=== PATIENT | female | born 1970 | race Caucasian/White ===

== ENCOUNTER 2020-07-28 10:56 | Emergency (ER) | payer BC, SELFPAY ==
--- NOTE | 2020-07-28 11:05 | ED.HA ---
HPI - Headache General Chief Complaint: Headache Stated Complaint: Headache/Nausea Time Seen by Provider: 07/28/20 11:06 Source: patient and RN notes reviewed History of Present Illness HPI Narrative: Patient is a 49-year-old female who presents the urgent care with complaints of a headache and nausea. Patient states that she has a history of migraines that are infrequent and therefore she does not take any controller meds. Patient states that this headache started Sunday morning at approximately 2 or 3 AM and she has been taking Tylenol/ibuprofen with intermittent pain relief. Patient states that she does have sensitivity to light and sound. States that she did have to leave work yesterday due to the headache. Patient denies of any vomiting. Denies that this being the worst headache she is ever had. Patient states that most of her pain is in the front and temples. Denies of any vision changes or loss of consciousness. Denies of any recent head injury. No other acute complaints. No acute distress noted. Patient aware of the plan of care Some parts of this dictation were generated by voice recognition software and may contain typographical and/or grammatical inaccuracies. Related Data Allergies Allergy/AdvReac Type Severity Reaction Status Date / Time morphine Allergy Anaphylactic Verified 07/28/20 11:21 Shock Sulfa (Sulfonamide Allergy Vomiting Verified 07/28/20 11:21 Antibiotics) Review of Systems Review of Systems: Narrative: CONSTITUTIONAL: Denies fever, chills, or sweats. EYES: Denies visual changes, redness, or discharge. ENT: Denies rhinorrhea, congestion, sore throat, or otalgia. CARDIOVASCULAR: Denies chest pain, palpitations, or edema. RESPIRATORY: Denies cough or dyspnea. GASTROINTESTINAL: Reports of nausea without vomiting or abdominal pain GENITOURINARY: Denies dysuria or hematuria. SKIN: Denies rash or itching. MUSCULOSKELETAL: Denies back pain, joint pain, or myalgia. NEUROLOGIC: Reports of headache All other systems reviewed are negative, except as documented in HPI. PMFSH Comments At the time of my signature, I reviewed and agree with the nursing past medical, surgical, social, and family history. There is no relevant family history pertinent to the patient complaint. Exam Narrative: Exam Narrative: GENERAL: This is a well-nourished, well-developed patient, in no apparent distress. HEAD: normocephalic, atraumatic. EYES: PERRL. Sclera clear/white. Vision is grossly intact. Sensitivity to light EARS: External ears normal NOSE: External nose normal with no obvious nasal discharge, nares without redness, no rhinorrhea. THROAT: Mucous membranes moist, posterior pharynx clear. NECK: Neck supple, non-tender without lymphadenopathy CARDIOVASCULAR: Regular rate and rhythm without murmurs, gallops, or rubs. RESPIRATORY: Clear to auscultation. Breath sounds equal bilaterally. No wheezes, rales, or rhonchi. SKIN: warm, intact with no suspicious lesions or rash, good texture and turgor. NEURO: awake, alert, and oriented to person, place and time. There were no obvious focal neurologic abnormalities. No neuro deficits. EXTREMITIES: No clubbing, cyanosis, or edema. Course Vital Signs Vital signs: Vital Signs Temperature 97.8 F 07/28/20 11:10 Pulse Rate 70 07/28/20 11:10 Respiratory Rate 20 07/28/20 11:10 Blood Pressure 159/90 H 07/28/20 11:10 Pulse Oximetry 98 07/28/20 11:10 Temperature 97.8 F 07/28/20 11:10 Pulse Rate 70 07/28/20 11:10 Respiratory Rate 20 07/28/20 11:10 Blood Pressure 159/90 H 07/28/20 11:10 Pulse Oximetry 98 07/28/20 11:10 Reviewed-patient is informed that they may have pre-hypertension or hypertension based on a blood pressure reading in the department. I recommend the patient call the primary care provider listed on their discharge instructions or a physician of their choice this week to arrange follow-up for further evaluation of possible pre-h
[2020-07-28 11:10] VITALS: BP 159/90; PULSE 70; RESP 20; TEMP 36.6; O2SAT 98
== END 2020-07-28 11:36 | disposition home or self-care (01) ==
PROVIDERS: Emergency Provider Nurse Practitioner Family
DX: R51.9 Headache, unspecified (principal)
CPT/HCPCS: 99213; G0463

== ENCOUNTER 2022-02-15 09:31 | Emergency (ER) | payer BC, SELFPAY ==
[2022-02-15 09:41] VITALS: BP 150/108; PULSE 69; RESP 18; TEMP 36.2; O2SAT 97
--- NOTE | 2022-02-15 09:47 | ED.HA ---
HPI - Headache General Chief Complaint: Headache Stated Complaint: headache Time Seen by Provider: 02/15/22 09:39 History of Present Illness HPI Narrative: Patient is a 51-year-old female with a history of migraine headaches here for evaluation of her typical migraine over the past 6 hours. Patient states the pain is a throbbing sensation on the left side of her head and present behind her left eye. Came on gradually but was so severe she was unable to sleep last night. Associated with photophobia. states that it is about a 6 out of 10 currently. Denies relief from ibuprofen or Tylenol, also attempted a Fioricet without significant relief of her headache. Reports nausea but no vomiting. No fevers, chills, neck pain or stiffness, visual changes. Patient states that she has felt unwell for the past 2 days, with diarrhea, body aches, generalized weakness. Home COVID test was negative. Related Data Allergies Allergy/AdvReac Type Severity Reaction Status Date / Time morphine Allergy Anaphylactic Verified 02/15/22 09:46 Shock Sulfa (Sulfonamide Allergy Vomiting Verified 02/15/22 09:46 Antibiotics) butalbital AdvReac Insomnia Verified 02/15/22 09:46 Review of Systems Review of Systems: Gen.: Denies fevers or chills Eyes: Denies eye pain or visual change ENT: Denies congestion Respiratory: Denies shortness of breath or cough CV: Denies chest pain or palpitations GI: Reports diarrhea and nausea. Denies abdominal pain nausea, emesis or diarrhea denies burning, urgency, frequency or hematuria Musculoskeletal: Denies back pain or muscle pain Neuro: Reports headache. Denies numbness, tingling, weakness or focal weakness Skin: Denies rash Except as documented, all other systems reviewed and negative Exam Narrative: APPEARANCE: Well appearing, no pain in distress, well-nourished. Head: Normocephalic and atraumatic. EYES: PERRLA/EOMI, conjunctivae clear NOSE: No nasal drainage EARS: External ear normal in appearance THROAT: Oropharynx is clear. Mucous membranes are moist. NECK: No nuchal rigidity or meningismus. No adenopathy, no masses. RESPIRATORY: Airway patent, respirations nonlabored. Clear to auscultation bilaterally, no rales, rhonchi, wheezing. CARDIOVASCULAR: Regular rate and rhythm without murmurs, rubs, or gallops. ABDOMINAL: Normoactive bowel sounds. Soft, nontender, nondistended. No rebound tenderness or guarding. MUSCULOSKELETAL: Extremities are warm and well-perfused. Moves all extremities well. No edema. NEURO: Cranial nerves II through XII intact. Culture Manager strength equal bilaterally. Normal speech. No focal neurologic deficits. SKIN: Skin is warm and dry. No rashes. PSYCHIATRIC: Normal affect/mood. Course Vital Signs Vital signs: Vital Signs Temperature 97.2 F L 02/15/22 09:41 Pulse Rate 69 02/15/22 09:41 Respiratory Rate 18 02/15/22 09:41 Blood Pressure 150/108 H 02/15/22 09:41 Pulse Oximetry 97 02/15/22 09:41 Oxygen Delivery Room Air 02/15/22 09:41 Temperature 97.2 F L 02/15/22 09:41 Pulse Rate 70 02/15/22 11:24 Respiratory Rate 18 02/15/22 11:24 Blood Pressure 154/86 H 02/15/22 11:24 Pulse Oximetry 99 02/15/22 11:24 Oxygen Delivery Room Air 02/15/22 09:41 MDM - Headache MDM Narrative Medical decision making narrative: 51-year-old female here for evaluation of her typical migraine headache over the past several hours. She is nontoxic-appearing on exam and has no focal neurologic deficits. Slightly hypertensive, improved in the ED without intervention. Her vital signs are otherwise normal. Neurologic exam without evidence of meningismus, altered mental status, focal neurologic findings, so doubt meningitis, encephalitis or stroke. Presentation not consistent with acute intracranial bleed to include subarachnoid hemorrhage given her lack of risk factors and headache history. She has no history of trauma so doubt ICH. Given history and physical, tempor
[2022-02-15] MEDS: SODIUM CHLORIDE 0.9% IV 1,000 ML 999 ML IV CONT (09:58)
[2022-02-15] MEDS: PROCHLORPERAZINE EDISYLATE 10 MG/2 ML VIAL IV PUSH (09:58)
[2022-02-15] MEDS: diphenhydrAMINE HCl INJ 50 MG/ML VIAL 12.5 MG IV PUSH (09:58)
[2022-02-15 10:06] LABS: Basophils Percent Auto 0.5 % (0.2-1.2); Eosinophils Absolute Auto 0.1 K/mm3 (0-0.3); Eosinophils Percent Auto 0.9 % (0-4.4); Hematocrit 47.5 % (37.0-47.0); Hemoglobin 16.8 g/dL (12.0-15.0); Immature Granulocyte Absolute 0.02 K/mm3 (0.00-0.031); Immature Granulocyte Percent A 0.3 % (0-0.5); Lymphocytes Absolute Auto 1.74 K/mm3 (0.9-3.2); Lymphocytes Percent Auto 23.3 % (18.3-44.2); Mean Corpuscular HGB Conc 35.4 g/dl (32-36); Mean Corpuscular Hemoglobin 31.8 pg (26-34); Mean Platelet Volume 9.3 fl (7.4-10.4); Monocytes Absolute Auto 0.5 K/mm3 (0.1-0.6); Monocytes Percent Auto 6.6 % (2.6-8.5); Neutrophils Absolute Auto 5.1 K/mm3 (1.3-6.7); Neutrophils Percent Auto 68.4 % (45.5-73.1); Platelet Count Result 209 k/mm3 (150-375); Red Blood Count 5.28 M/mm3 (4.2-5.4); Red Cell Distribution Width 12.8 % (11.5-14.5); White Blood Count 7.5 K/mm3 (4.5-10.0)
[2022-02-15 10:19] LABS: Lipase 73 U/L (23-300)
[2022-02-15 10:20] LABS: Anion Gap 12 mmol/L (8-16); Blood Urea Nitrogen 13 mg/dL (7-17); Calcium 9.5 mg/dL (8.4-10.2); Carbon Dioxide 24 mmol/L (22-30); Chloride 104 mmol/L (98-107); Estimated CRCL calculation 109 ml/min; Estimated Glomerular Filt Rate > 60; Glucose 109 mg/dL (65-110); Sodium 140 mmol/L (137-145)
[2022-02-15 10:41] LABS: Influenza A QL RT-PCR Negative (Negative); Influenza B QL RT-PCR Negative (Negative)
[2022-02-15 11:24] VITALS: BP 154/86; PULSE 70; RESP 18; O2SAT 99
== END 2022-02-15 11:26 | disposition home or self-care (01) ==
PROVIDERS: Physician Assistant; Emergency Provider Emergency Medicine
DX: G43.909 Migraine, unspecified, not intractable, without status migrainosus (principal)
CPT/HCPCS: 36415; 80048; 83690; 85025; 87502; 96374; 96375; 99284; J0780; J1100; J1200; J7030

== ENCOUNTER 2022-07-03 10:29 | Emergency (ER) | payer BC, SELFPAY ==
--- NOTE | ~2022-07-03 | XR_ITS ---
XR chest 2V DATE: 07/03/2022 11:15 INDICATION: Shortness of breath for 4 days TECHNIQUE: 2 views COMPARISON: None FINDINGS: Normal heart size. No hilar or mediastinal enlargement. No pulmonary infiltrate or consolid ation, pleural effusion or pulmonary vascular congestion or pneumothorax. Status post cholecystectomy. Mild degenerative spurring and dextroscoliosis of the thoracic spine. IMPRESSION: No active cardiopulmonary disease Reviewed, dictated and finalized at location B.
--- NOTE | 2022-07-03 10:40 | ED.URI ---
HPI - URI/Sore Throat General Chief Complaint: Upper Respiratory Infection Stated Complaint: Shortness Of Breath/Chest Congestion Time Seen by Provider: 07/03/22 10:41 Source: patient and RN notes reviewed History of Present Illness HPI Narrative: Patient is a 51-year-old female who presents to urgent care with complaints of shortness of breath, chest congestion, persistent cough and sore throat. Patient is tearful stating that symptoms started 4 days ago and she has been taking Robitussin DM, TheraFlu and Tylenol cold and flu. Denies any known fevers, nausea, vomiting or ill exposures. No other acute complaints. Patient aware of the plan care. Some parts of this dictation were generated by voice recognition software and may contain typographical and/or grammatical inaccuracies. Related Data Allergies Allergy/AdvReac Type Severity Reaction Status Date / Time morphine Allergy Anaphylactic Verified 02/15/22 09:46 Shock Sulfa (Sulfonamide Allergy Vomiting Verified 02/15/22 09:46 Antibiotics) butalbital AdvReac Insomnia Verified 02/15/22 09:46 Review of Systems Review of Systems: CONSTITUTIONAL: Denies fever, chills, or sweats. EYES: Denies visual changes, redness, or discharge. ENT: Denies rhinorrhea, congestion, otalgia. Reports of sore throat CARDIOVASCULAR: Denies chest pain, palpitations, or edema. RESPIRATORY: Reports chest congestion with dry cough and dyspnea GASTROINTESTINAL: Denies abdominal pain, nausea, vomiting, or diarrhea. GENITOURINARY: Denies dysuria or hematuria. SKIN: Denies rash or itching. MUSCULOSKELETAL: Denies back pain, joint pain, or myalgia. NEUROLOGIC: Denies headache, numbness, or weakness. All other systems reviewed are negative, except as documented in HPI. PMFSH Comments At the time of my signature, I reviewed and agree with the nursing past medical, surgical, social, and family history. There is no relevant family history pertinent to the patient complaint. Exam Narrative: GENERAL: This is a well-nourished, well-developed patient, tearful HEAD: normocephalic, atraumatic. EYES: PERRL. Sclera clear/white. Vision is grossly intact. EARS: External ears normal, auditory canals clear and without drainage, TMs normal without perforation. Hearing grossly intact. NOSE: External nose normal with no obvious nasal discharge, nares without redness, no rhinorrhea. THROAT: Mucous membranes moist, mild erythema to posterior pharynx with moderate postnasal drainage. NECK: Neck supple, non-tender without lymphadenopathy CARDIOVASCULAR: Regular rate and rhythm RESPIRATORY: Scant inspiratory wheezes to bilateral upper lobes, cleared with cough SKIN: warm, intact with no suspicious lesions or rash, good texture and turgor. NEURO: awake, alert, and oriented to person, place and time. There were no obvious focal neurologic abnormalities. EXTREMITIES: No clubbing, cyanosis, or edema. Course Course Level of Care: Express Care Visit Vital Signs Vital signs: Vital Signs Temperature 99.1 F 07/03/22 10:46 Pulse Rate 87 07/03/22 10:46 Respiratory Rate 20 07/03/22 10:46 Blood Pressure 119/72 07/03/22 10:46 Pulse Oximetry 97 07/03/22 10:46 Oxygen Delivery Room Air 07/03/22 10:46 Temperature 99.1 F 07/03/22 10:46 Pulse Rate 87 07/03/22 10:46 Respiratory Rate 20 07/03/22 10:46 Blood Pressure 119/72 07/03/22 10:46 Pulse Oximetry 97 07/03/22 10:46 Oxygen Delivery Room Air 07/03/22 10:46 Reviewed MDM - URI/Sore Throat MDM Narrative Medical decision making narrative: Reviewed lab results with patient. She is aware that strep swab was negative. Educated patient on culture we will call within 72 hours if culture is positive antibiotics are necessary. Chest x-ray was also negative for any abnormality or pneumonia. Symptoms are consistent with a common cold/bronchitis. Advised patient to complete the steroid regimen as prescribed. Use the Tessalon Perles as need
[2022-07-03 10:46] VITALS: BP 119/72; PULSE 87; RESP 20; TEMP 37.3; O2SAT 97
== END 2022-07-03 11:50 | disposition home or self-care (01) ==
PROVIDERS: Emergency Provider Nurse Practitioner Family; PCP Family Medicine
DX: J40 Bronchitis, not specified as acute or chronic (principal)
CPT/HCPCS: 71046; 87081; 87147; 87880; 99213; G0463

== ENCOUNTER 2022-08-14 14:18 | Outpatient (CLI) | payer BC, SELFPAY ==
[2022-08-14 17:54] LABS: Basophils Absolute Auto 0.1 K/mm3 (0.0-0.1); Basophils Percent Auto 0.7 % (0.2-1.2); Eosinophils Absolute Auto 0.1 K/mm3 (0-0.3); Hematocrit 42.4 % (37.0-47.0); Hemoglobin 14.6 g/dL (12.0-15.0); Immature Granulocyte Absolute 0.04 K/mm3 (0.00-0.031); Immature Granulocyte Percent A 0.6 % (0-0.5); Lymphocytes Absolute Auto 2.64 K/mm3 (0.9-3.2); Mean Corpuscular HGB Conc 34.4 g/dl (32-36); Mean Corpuscular Hemoglobin 31.9 pg (26-34); Mean Corpuscular Volume 92.8 fl (80-100); Mean Platelet Volume 9.8 fl (7.4-10.4); Monocytes Absolute Auto 0.6 K/mm3 (0.1-0.6); Monocytes Percent Auto 8.2 % (2.6-8.5); Neutrophils Absolute Auto 3.6 K/mm3 (1.3-6.7); Neutrophils Percent Auto 51.5 % (45.5-73.1); Platelet Count Result 218 k/mm3 (150-375); Red Blood Count 4.57 M/mm3 (4.2-5.4); Red Cell Distribution Width 13.3 % (11.5-14.5); White Blood Count 6.9 K/mm3 (4.5-10.0)
[2022-08-14 18:22] LABS: Vitamin D 25 Hydroxy 22.2 ng/mL
[2022-08-14 18:34] LABS: Alanine Aminotransferase 39 U/L (6-35); Albumin Level 4.3 g/dL (3.5-5.1); Alkaline Phosphatase 83 U/L (38-126); Anion Gap 3 mmol/L (8-16); Aspartate Amino Transferase 43 U/L (14-36); Bilirubin,Total 0.7 mg/dL (0.2-1.3); Blood Urea Nitrogen 18 mg/dL (7-17); Calcium 8.9 mg/dL (8.4-10.2); Carbon Dioxide 34 mmol/L (22-30); Chloride 102 mmol/L (98-107); Cholesterol 245 mg/dL (0-200); Estimated Glomerular Filt Rate > 60; Glucose 87 mg/dL (65-110); HDL Direct 37 mg/dL; Sodium 139 mmol/L (137-145); Triglycerides 333 mg/dL (<150)
[2022-08-14 18:36] LABS: Microalbumin Urine Random 17.2 mg/L (0-16.7)
[2022-08-14 18:45] LABS: LDL Cholesterol Direct 148 mg/dL
[2022-08-14 18:55] LABS: Hemoglobin A1C 5.6 % (<5.7)
[2022-08-14 19:00] LABS: Creatinine Urine 393.9 mg/dL; MALB Creatinine Ratio 4.4 mg/g (0-30)
[2022-08-18 12:21] LABS: Testosterone Total 16 ng/dL (2-45)
[2022-08-19 04:46] LABS: FSH 44.5 mIU/mL (***); Progesterone <0.2 ng/mL (***)
[2022-08-22 18:02] LABS: Estradiol, Ultrasensitive 7 pg/mL
== END 2022-08-14 14:19 | disposition home or self-care (01) ==
PROVIDERS: PCP Family Medicine; Visit Provider Family Medicine
DX: Z00.00 Encounter for general adult medical examination without abnormal findings (principal); E11.9 Type 2 diabetes mellitus without complications; N95.1 Menopausal and female climacteric states; G43.909 Migraine, unspecified, not intractable, without status migrainosus; R35.1 Nocturia
CPT/HCPCS: 36415; 80053; 80061; 82043; 82306; 82670; 83001; 83002; 83036; 84144; 84403; 84443; 85025

== ENCOUNTER 2022-08-23 07:47 | Outpatient (CLI) | payer OTHER, BC, SELFPAY ==
--- NOTE | ~2022-08-23 | XR_ITS ---
Left Shoulder Technique: AP and scapular Y views were obtained. Clinical History: Pain Findings: No fracture or dislocation is seen. Osseous alignment is anatomic. The glenohumeral and acr omioclavicular joint spaces are preserved. Soft tissues are unremarkable. Impression: Unremarkable left shoulder radiographs. Reviewed, dictated and finalized at [facility]. Impression: Unremarkable left shoulder radiographs.
== END 2022-08-23 07:48 | disposition home or self-care (01) ==
PROVIDERS: PCP Family Medicine; Visit Provider Nurse Practitioner
DX: M25.512 Pain in left shoulder (principal)
CPT/HCPCS: 73030

== ENCOUNTER 2023-03-12 11:39 | Outpatient (CLI) | payer BC, SELFPAY ==
--- NOTE | ~2023-03-12 | XR_ITS ---
XR abdomen/kub 1V 03/12/2023 11:55 INDICATION: Nausea and vomiting. Diarrhea. TECHNIQUE: KUB COMPARISON: None FINDINGS: Bowel gas pattern is normal. There are pelvic phleboliths. There are cholecystectomy clips. There is no evidence of free air, mass, organomegaly, ascites or obstruction. No abnormal calculi a re seen. The bones appear intact. IMPRESSION: 1: No acute abdominal abnormality identified. Reviewed, dictated and finalized at location B. RVISOR LAMP SHADES
[2023-03-12 18:59] LABS: Hematocrit 49.6 % (37.0-47.0); Hemoglobin 16.7 g/dL (12.0-15.0); Mean Corpuscular HGB Conc 33.7 g/dl (32-36); Mean Corpuscular Hemoglobin 31.2 pg (26-34); Mean Corpuscular Volume 92.7 fl (80-100); Mean Platelet Volume 9.6 fl (7.4-10.4); Platelet Count Result 212 k/mm3 (150-375); Red Blood Count 5.35 M/mm3 (4.2-5.4); Red Cell Distribution Width 13.1 % (11.5-14.5); White Blood Count 6.8 K/mm3 (4.5-10.0)
[2023-03-12 19:24] LABS: Alanine Aminotransferase 72 U/L (6-35); Albumin Level 4.8 g/dL (3.5-5.1); Alkaline Phosphatase 86 U/L (38-126); Anion Gap 15 mmol/L (8-16); Aspartate Amino Transferase 75 U/L (14-36); Blood Urea Nitrogen 16 mg/dL (7-17); Calcium 9.8 mg/dL (8.4-10.2); Carbon Dioxide 23 mmol/L (22-30); Chloride 103 mmol/L (98-107); Estimated Glomerular Filt Rate > 60; Glucose 97 mg/dL (65-110); Potassium 3.6 mmol/L (3.4-5.0); Sodium 141 mmol/L (137-145)
== END 2023-03-12 11:40 | disposition home or self-care (01) ==
PROVIDERS: PCP Family Medicine; Visit Provider Family Medicine
DX: R10.9 Unspecified abdominal pain (principal); R11.2 Nausea with vomiting, unspecified; R19.7 Diarrhea, unspecified; R69 Illness, unspecified
CPT/HCPCS: 36415; 74018; 80053; 85027

== ENCOUNTER 2023-03-16 07:50 | Outpatient (CLI) | payer BC, SELFPAY ==
--- NOTE | ~2023-03-16 | US_ITS ---
US abdomen complete EXAMINATION: US Abdomen Complete INDICATION: Abdomen pain. Nausea, vomiting and diarrhea. PROCEDURE: Realtime High Resolution abdomen ultrasound. COMPARISON: No prior studies for comparison FINDINGS: Gallbladder is surgically absent. Common bile duct measures 4.5 mm mm. Liver echotexture is increased, consistent with fatty infiltration. There is hepatomegaly.. Pancreas within normal limits. Pancreatic tail is obscured by bowel gas. Spleen is unremarkeable. Renal ech otexture is within normal limits bilaterally without hydronephrosis, contour deforming mass or renal stone. Right kidney measures 13.1 cm. Left kidney measures 11.5 cm. Visualized aspects of the aorta and IVC are within normal limits. Portal vein is patent. No sonograph ic Trejo's sign indicated by the technologist. IMPRESSION: 1: Hepatomegaly with fatty infiltration of the liver. 2: Status post cholecystectomy. Reviewed, dictated and finalized at location B. RBARIC TECHNICIAN
== END 2023-03-16 07:51 ==
PROVIDERS: PCP Family Medicine; Visit Provider Family Medicine
DX: R10.9 Unspecified abdominal pain (principal); R11.2 Nausea with vomiting, unspecified; R74.8 Abnormal levels of other serum enzymes; Z90.49 Acquired absence of other specified parts of digestive tract
CPT/HCPCS: 76700

== ENCOUNTER 2024-01-15 11:54 | Outpatient (CLI) | payer BC, SELFPAY ==
[2024-01-15 19:45] LABS: Alanine Aminotransferase 67 U/L (6-35); Albumin Level 4.3 g/dL (3.5-5.1); Alkaline Phosphatase 80 U/L (38-126); Anion Gap 4 mmol/L (4-12); Aspartate Amino Transferase 73 U/L (14-36); Bilirubin,Total 0.7 mg/dL (0.2-1.3); Blood Urea Nitrogen 13 mg/dL (7-17); Calcium 9.2 mg/dL (8.4-10.2); Carbon Dioxide 30 mmol/L (22-30); Chloride 104 mmol/L (98-107); Cholesterol 221 mg/dL (0-200); Estimated Glomerular Filt Rate > 60; Glucose 127 mg/dL (65-110); HDL Direct 39 mg/dL; Potassium 4.6 mmol/L (3.4-5.0); Sodium 138 mmol/L (137-145); Triglycerides 159 mg/dL (<150)
[2024-01-15 19:56] LABS: LDL Cholesterol Direct 143 mg/dL
[2024-01-15 20:03] LABS: Hemoglobin A1C 6.6 % (<5.7)
[2024-01-15 20:08] LABS: Hematocrit 45.5 % (37.0-47.0); Mean Corpuscular Hemoglobin 30.9 pg (26-34); Mean Corpuscular Volume 93.8 fl (80-100); Mean Platelet Volume 9.7 fl (7.4-10.4); Platelet Count Result 184 k/mm3 (150-375); Red Blood Count 4.85 M/mm3 (4.2-5.4); Red Cell Distribution Width 13.1 % (11.5-14.5); White Blood Count 5.4 K/mm3 (4.5-10.0)
== END 2024-01-15 11:55 | disposition home or self-care (01) ==
PROVIDERS: PCP Nurse Practitioner Adult Health; Visit Provider Nurse Practitioner Adult Health
DX: E66.9 Obesity, unspecified (principal); Z13.9 Encounter for screening, unspecified
CPT/HCPCS: 36415; 80053; 80061; 82607; 83036; 84443; 85027

== ENCOUNTER 2024-02-11 11:34 | Outpatient (CLI) | payer BC, SELFPAY ==
--- NOTE | ~2024-02-11 | XR_ITS ---
Right foot Technique: AP, oblique, and lateral views were obtained. Clinical History: Pain Findings: There is an oblique fracture of the proximal phalanx of the great toe, nearly nondisplaced. No other fracture or dislocation seen.. Joint spaces are preserved without erosive or degenerative c hange. Soft tissues are unremarkable. Impression: Acute, oblique fracture of the proximal phalanx of the great toe, as detailed above. Reviewed, dictated and finalized at location M. Impression: Acute, oblique fracture of the proximal phalanx of the great toe, as detailed janki daugherty.
== END 2024-02-11 11:35 | disposition home or self-care (01) ==
LOC: ANHBWCIMG 11:35
PROVIDERS: PCP Nurse Practitioner Adult Health; Visit Provider Nurse Practitioner Adult Health
DX: S92.411A Displaced fracture of proximal phalanx of right great toe, initial encounter for closed fracture (principal); X58.XXXA Exposure to other specified factors, initial encounter
CPT/HCPCS: 73630

== ENCOUNTER 2024-05-27 11:25 | Outpatient (CLI) | payer BC, SELFPAY ==
--- NOTE | ~2024-05-27 | XR_ITS ---
Right Hand Technique: PA, oblique, and lateral views were obtained. Clinical History: Carpal tunnel syndrome Findings: No acute fracture or dislocation is seen. Osseous alignment is anatomic. Joint spaces are p reserved. Soft tissues are unremarkable. Impression: Unremarkable right hand. Reviewed, dictated and finalized at location . L DIETITIAN Impression: Unremarkable right hand.
--- NOTE | ~2024-05-27 | XR_ITS ---
Left Hand Technique: PA, oblique, and lateral views were obtained. Clinical History: Carpal tunnel syndrome Findings: No acute fracture or dislocation is seen. Osseous alignment is anatomic. Joint spaces are p reserved. Soft tissues are unremarkable. Impression: Unremarkable left hand. Reviewed, dictated and finalized at location . 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
--- OUTSIDE RECORDS SUMMARY | 2024-05-27 12:45 | XMS_ITS | Referral Summary ---
Author Organization [facility] Address [address] [place] [address] Care Team Providers Care Chicken And Fish Cleaner Name Role Phone Yovani Potter MD Primary Care Provider [phone] Allergies Active Allergy Reactions Criticality Noted Date Comments Morphine Sulfa (Sulfonamide Antibiotics) Medications escitalopram (LEXAPRO) 10 mg tabletIndicatio ns:Anxiety Take 1 tablet (10 mg total) by mouth daily 30 tablet 2 0 Active fluticasone propionate (FLONASE) 50 mcg/actuation nasal sprayIndication s:Acute maxillary sinusitis, recurrence not specified Administer 2 sprays into each nostril daily 16 g 5 0 Active methylPREDNISol one (MEDROL DOSEPACK) 4 mg DosepackIndicat ions:Acute maxillary sinusitis, recurrence not specified Take as directed on package. 21 tablet 0 Active Additional Information Patient not taking.Reported on 07/12/2022 fluconazole (DIFLUCAN) 150 mg tabletIndicatio ns:Antibiotic-i nduced yeast infection Take 1 tablet (150 mg total) by mouth as directed Take one tab now. Repeat in 7 days if symptoms persist. 2 tablet 3 Active cyclobenzaprine (FLEXERIL) 10 mg tablet Take 1 tablet (10 mg total) by mouth 2 (two) times a day as needed for muscle spasms 20 tablet 3 Active Active Problems Problem Noted Date Diagnosed Date Urine troubles 06/09/2019 Screening breast examination 06/09/2019 Family history of cardiovascular disease 020 Obesity (BMI 30-39.9) 06/09/2019 Anxiety 06/09/2019 Immunizations Name Administration Dates Next Due Influenza, Quadrivalent, Spl it, Preservative Free, Intramuscular 02/07/2017 Influenza, Unspecified 06/09/2019(Deferr ed: Patient Refused),04/16/2018(Deferred: Patient Refused) Pneumococcal Polysaccharide PPV23 11/13/2013 Social History Tobacco Use Types Packs/Day Years Used Date Smoking Tobacco: Some Days Smokeless Tobacco: Never Comments:1 ppd Alcohol Use Standard Drinks/Week Comments Never 0 (1 standard drink = 0.6 oz pur e alcohol) AUDIT-C Answer Date Recorded Frequency of Alcohol Consumption Never 03/19/2019 Average Number of Drinks Not on file 019 Frequency of Binge Drinking Not on file 07/2018 PHQ-2 Answer Date Recorded PHQ-2 Total Score (If total score is 3 or more points, staff should administer the PHQ-9) 0 06/09/2019 Personal Safety Answer Date Recorded Getting School Help Needed Not on file 08/11 Comments No Sex and Gender Information Value Date Recorded Sex Assigned at Not on file 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 Gender Identity Not on file Sexual Orientation Not on file Last Filed Vital Signs Vital Sign Reading Time Taken Comments Blood Pressure 131/64 08/08/2022 4:10 PM CDT Pulse 84 08/08/2022 4:10 PM CDT Temperature 36.4 C (97.6 F) 08/08/2022 4:10 PM CDT Respiratory Rate 16 08/08/2022 4:10 PM CDT Oxygen Saturation 100% 08/08/2022 4:10 PM CDT Inhaled Oxygen Concentration - - Weight 99.8 kg (220 lb) 08/08/2022 2:21 PM CDT Height 167.6 cm (5' 6 ) 08/08/2022 2:21 PM CDT Body Mass Index 35.51 08/08/2022 2:21 PM CDT Plan of Treatment Not on file Insurance [employer] 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
--- OUTSIDE RECORDS SUMMARY | 2024-05-27 12:45 | XMS_ITS | Encounter Summary ---
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
--- OUTSIDE RECORDS SUMMARY | 2024-05-27 12:45 | XMS_ITS | Clinical Summary ---
Author Organization [facility] Address [address] [place] [id number] Care Team Providers Care Patternmaker Bench Name Role Phone None, Provider MD Primary Care Provider Unavaila ble Allergies Active Allergy Reactions Criticality Noted Date Comments Morphine Unknown 02/05/2019 Sulfa Antibiotics Unknown 02/05/2019 Medications biotin 300 MCG Tab Take 1 tablet by mouth daily. Active Lysine HCl 500 MG Tab Active NON FORMULARY 5HTP Active hydrocodone-bill taminophen 5-325 MG tabletIndicatio ns:Acute Pain < 3 Day Supply Take 1-2 tablets by mouth every 6 (six) hours as needed. 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 Gender Identity Not on file Sexual Orientation Not on file Last Filed Vital Signs Vital Sign Reading Time Taken Comments Blood Pressure 122/78 02/05/2019 10:05 AM CDT Pulse 58 02/05/2019 10:05 AM CDT Temperature 36.5 C (97.7 F) 02/05/2019 8:03 AM CDT Respiratory Rate 18 02/05/2019 10:05 AM CDT Oxygen Saturation 97% 02/05/2019 10:05 AM CDT Inhaled Oxygen Concentration - - Weight 98.9 kg (218 lb) 02/05/2019 8:03 AM CDT Height 167.6 cm (5' 6 ) 02/05/2019 8:03 AM CDT Body Mass Index 35.19 02/05/2019 8:03 AM CDT Plan of Treatment Health Maintenance Due Date Last Done Comments Colorectal Cancer Screening Colonoscopy (10 Years) 1970 Annual Physical 09/04/1974 Hepatitis C 09/04/1989 DTaP, Tdap and Td Vaccines ( 1 - Tdap) 09/04/1990 Hepatitis B Vaccines (1 of 3 - 19+ 3-dose series) 09/04/1990 Mammogram Screening 2011 Zoster Vaccines (1 of 2) 09/04/2021 COVID-19 Vaccine (2023-2 5 season) 2023 Influenza Adult (#1) 2024 Meningococcal B Vaccine Aged Out No l onger eligible based on patient's age to complete this topic Meningococcal Vaccine Aged Out No sheila andres eligible based on patient's age to complete this topic Pneumococcal Vaccine: Pediat rics (0 to 5 Years) and At-Risk Patients (6 to 64 Years) Aged Out No longer eligible b ased on patient's age to complete this topic RSV Immunizations Under 20 Months Aged Out No longer eligible based on patient's age to complete this topic Care Teams Patternmaker Bench Relationship Specialty Start Date End Date None, Provider, PCP - General 02/05/19
--- OUTSIDE RECORDS SUMMARY | 2024-05-27 12:45 | XMS_ITS | Clinical Summary ---
Author Organization [facility] Address [address] [place] [address] Care Team Providers Care Line Servicer Name Role Phone Yovani Potter MD Primary Care Provider [phone] Allergies Active Allergy Reactions Criticality Noted Date [...] Refused),04/16/2018(Deferred: Patient Refused) Pneumococcal Polysaccharide PPV23 11/13/2013 Surgical History Surgery Date Site/Laterality Comments HYSTERECTOMY CARPAL TUNNEL RELEASE CHOLECYSTECTOMY Family History Medical History Relation Name Comments Diabetes Father Hypertension Father Hypertension Mother Diabetes Sister Relation Name Status Comments Father Mother Alive Sister Social History Tobacco Use Types Packs/Day Years [...] on file 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 Gender Identity Not on file Sexual Orientation Not on file Obstetrics History Last Filed Vital Signs Vital Sign Reading [...] 08/08/2022 2:21 PM CDT Plan of Treatment Health Maintenance Due Date Last Done Comments Breast Cancer Screening-Mammogram 1970 Colon Cancer Screening-Colonoscopy 1970 Hepatitis C Screening 1970 DTaP/Tdap/Td Vaccine (1 - Tdap) 09/04/1982 Hepatitis B Screening 09/04/1989 Regular Well Visit/Exam 18-64 09/04/1989 Pneumococcal vaccine <65 (2 of 2 - PCV) 11/13/2014 0 11/13/2013 Depression Screening 06/09/2020 06/09/2019 Zoster Vaccine (1 of 2) 09/04/2021 Influenza Vaccine (#1) 2023 02/07/2017 Insurance * Guarantor: Arabella Espinal Account Type Relation to Patient Date of Phone Billing Address Personal/Family Self 1970 [address] [id number] [employer] WORK[employer] COMPENSATION GENERIC Member Subscriber Plan / Payer (Ef fective 2022-Present) Name:Arabella Espinal Relation to Subscriber:Employee Name:[employer] (Home) Address: [place] [address] Payer ID:[id number] Group ID:Not on file Type:WORKERS COMPENSATION Address: [address] [phone] Care Teams Line Servicer Relationship Specialty Start Date End Date [place] [address] PCP - General Family Medicine 07/09/19
== END 2024-05-27 11:26 | disposition home or self-care (01) ==
PROVIDERS: PCP Nurse Practitioner Adult Health; Visit Provider Plastic Surgery
DX: G56.03 Carpal tunnel syndrome, bilateral upper limbs (principal)
CPT/HCPCS: 73130

== ENCOUNTER 2024-08-11 10:30 | Outpatient (CLI) | payer BC, SELFPAY ==
--- OUTSIDE RECORDS SUMMARY | 2024-08-11 12:08 | XMS_ITS | Referral Summary ---
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
--- OUTSIDE RECORDS SUMMARY | 2024-08-11 12:08 | XMS_ITS | Clinical Summary ---
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 Gender Identity Not on file Sexual [...] 19+ 3-dose series) 09/04/1990 Mammogram Screening 2011 Pneumococcal Vaccine: 50+ Ye ars (1 of 1 - PCV) 09/04/2021 Zoster Vaccines (1 of 2) 09/04/2021 COVID-19 Vaccine ( - 2023-2 5 season) 2023 Meningococcal B Vaccine Aged Out No l onger eligible based on patient's age to complete this topic Meningococcal Vaccine Aged Out No sheila andres eligible based on patient's age to complete this topic RSV Immunizations Under 20 Months Aged Out No longer eligible based on patient's age to complete this topic Care Teams Icu Manager Relationship Specialty Start Date End Date None, Provider, PCP - General 02/05/19
--- OUTSIDE RECORDS SUMMARY | 2024-08-11 12:09 | XMS_ITS | Encounter Summary ---
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
--- OUTSIDE RECORDS SUMMARY | 2024-08-11 12:09 | XMS_ITS | Clinical Summary ---
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 Gender Identity Not on file Sexual [...] Vaccine (1 of 2) 09/04/2021 Influenza Vaccine (Season Ended) 2024 02/08/20 17 Insurance [employer] OOS WORKERS COMPENSATION GENERIC Member Subscriber Plan / Payer (Ef fective 2022-Present) Name:Arabella Espinal Relation to Subscriber:Employee Name:[employer] (Home) Address: [place] [address] Payer ID:[id number] Group ID:Not on file Type:WORKERS COMPENSATION Address: [place] [id number] Care Teams Managed Care Director Relationship Specialty Start Date End Date Yovani Potter MD [address] [place] [address] PCP - General Family Medicine 07/09/19
[2024-08-11 21:29] LABS: Microalbumin Urine Random 93.2 mg/L (0-16.7)
[2024-08-11 22:17] LABS: Creatinine Urine 204.1 mg/dL; MALB Creatinine Ratio 45.7 mg/g (0-30)
[2024-08-11 22:43] LABS: Alanine Aminotransferase 91 U/L (6-35); Albumin Level 4.7 g/dL (3.5-5.1); Alkaline Phosphatase 104 U/L (38-126); Anion Gap 11 mmol/L (4-12); Aspartate Amino Transferase 90 U/L (14-36); Bilirubin,Total 0.6 mg/dL (0.2-1.3); Blood Urea Nitrogen 13 mg/dL (7-17); Calcium 9.3 mg/dL (8.4-10.2); Carbon Dioxide 27 mmol/L (22-30); Chloride 101 mmol/L (98-107); Cholesterol 272 mg/dL (0-200); Estimated Glomerular Filt Rate > 60; Glucose 180 mg/dL (65-110); HDL Direct 40 mg/dL; Potassium 4.8 mmol/L (3.4-5.0); Sodium 139 mmol/L (137-145); Triglycerides 186 mg/dL (<150)
[2024-08-11 22:54] LABS: LDL Cholesterol Direct 160 mg/dL
[2024-08-12 01:03] LABS: Hemoglobin A1C 6.9 % (<5.7)
== END 2024-08-11 10:31 | disposition home or self-care (01) ==
LOC: ANHBWCLAB 10:30
PROVIDERS: PCP Nurse Practitioner Adult Health; Visit Provider Nurse Practitioner Adult Health
DX: E11.9 Type 2 diabetes mellitus without complications (principal)
CPT/HCPCS: 36415; 80053; 80061; 82043; 82565; 83036

== ENCOUNTER 2024-12-03 09:03 | Outpatient (CLI) | payer BC, SELFPAY ==
--- OUTSIDE RECORDS SUMMARY | 2024-12-03 09:11 | XMS_ITS | Clinical Summary ---
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 Gender Identity Not on file Sexual Orientation [...] 2:21 PM CDT Height 167.6 cm (5' 6) 08/08/2022 2:21 PM CDT Body Mass Index [...] (1 of 2) 09/04/2021 Influenza Vaccine (#1) 2024 02/07/2017 Insurance [employer] OOS WORKERS COMPENSATION GENERIC Member Subscriber Plan / Payer (Ef fective 2022-Present) Name:Arabella Espinal Relation to Subscriber:Employee Name:[employer] (Home) Address: [place] [address] Payer ID:[id number] Group ID:Not on file Type:WORKERS COMPENSATION Address: [place] [id number] Care Teams Snailer Relationship Specialty Start Date End [place] [address] PCP - General Family Medicine 07/09/19
--- OUTSIDE RECORDS SUMMARY | 2024-12-03 09:11 | XMS_ITS | Clinical Summary ---
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
--- OUTSIDE RECORDS SUMMARY | 2024-12-03 09:11 | XMS_ITS | Patient Health Record ---
Author Organization [facility] As Inspherion Address [address] [facility] [address] [place] [address] Care Team Providers Care Insurance Sales Assistant Name Role Phone Mili Lerma APRN Primary Care Provider Cheyenne Arthur Unavailable [phone] Gretchen Hawley Unavailable [phone] Allergies Allergen (clinical drug ingredient) Drug/Non Drug Allergy documented on EMR Reaction Allergy Type Onset Date Status butalbital Butalbital Unknown Drug Allergy Activ e morphine Morphine Unknown Drug Allergy Active Substance with sulfonamide structure and antibacterial mechanism of action (substance) Sulfa Antibiotics Unknown Drug Allergy Active Results Component Value Reference Range Flag Notes THCCOOH Reviewed date:06/06/2024 04:59:00 PM Interpretation: Performing Lab:[address] [place] [address], Director - [id number] Notes/Report: An exception occurred while processing this report and so it has incomplete data. Please contact [employer] Support for assistance. THCCOOH >600 15.0 POSITIVE Not Medicated Inconsistent PDF Report CE_OUT_RAW _COMMON_SR C_ORU UDT Reviewed date:05/26/2024 12:25:33 PM Interpretation: Performing Lab: Notes/Report: THC POS 0 - 50 ng/ml Cocaine NEG 0 - 300 ng/ml Amphetamine NEG 0 - 1000 ng/ml Buprenorphine (BUP) NEG 0 - 10 ng/ml Secobarbital (Bar) NEG 0 - 300 ng/ml Oxazepam (BZO) NEG 0 - 300 ng/ml 6-nxskiffytw-2,8-xnrelfvd-3, 3-diphe nylpyrrolidine (EDDP) NEG 0 - 300 ng/ml Methamphetamine (MET) NEG 0 - 1000 ng/ml Methylenedioxymethamphetamin e (MDMA) NEG 0 - 500 ng/ml Morphine (MOP 300/BAA9840) NEG 0 - 300 ng/ml Methadone (MTD) NEG 0 - 300 ng/ml Phencyclidine (PCP) NEG 0 - 25 ng/ml Nortriptyline (TCA) NEG 0 - 1000 ng/ml Oxycodone NEG 0 - 300 ng/ml x NEG 0 - 300 ng/ml Reason For Referral No Information Medications Medication SIG (Take, Route, Frequency, Duration) Notes Start Date End Date Status metFORMIN HCl 500 MG Tablet 1 tablet with a meal Orally Once a day Active FLUoxetine HCl 40 MG Capsule 1 capsule Oral Once a day; Duration: 30 days appointment needed Active QUEtiapine Fumarate 100 MG Tablet 1 tablet at bedtime Oral Once a day; Duration: 90 days Active Ozempic (1 MG/DOSE) 4 MG/3ML Solution Pen-injector Subcutaneous; Duration: 28 Days Not-Taking Mounjaro 2.5 MG/0.5ML Solution Auto-injector as directed Subcutaneous Active oxyBUTYnin Chloride 5 MG Tablet 1 tablet Orally Once a day Active QUEtiapine Fumarate 50 MG Tablet TAKE ONE (1) TABLET BY MOUTH AT BEDTIME; Duration: 30 appointment needed Active Ubrelvy 100 MG Tablet Oral; Duration: 10 Days Active Jardiance 25 MG Tablet Oral; Duration: 30 Days Not-Taking hydrOXYzine HCl 25 MG Tablet Oral; Duration: 23 Days Not-Taking Social History Tobacco Use: Social History Observation Description Date Details (start date - stop date) Former Smoker 02/24/2024 - 05/17/2024 Sex Assigned At : Social History Observation Description Sex Assigned At Female Social History Miscellaneous: Social Info Question Answer Notes Advance Care Planning Are you your own decision-maker Yes Do you have Power of Research Manager for Health or [facility]? No Sexual History: Social Info Question Answer Notes Sexual History Had sex in the past 12 months (vaginal, oral, or anal)? Yes with Women only Social History Social Info Question Answer Notes Household: Marital Status: Single Number of Adults in household: 2 Household: Social Info Question Answer Notes Household Marital status: single Number of adults in household: 2 Number of children in household: 1 has 2 children and 1 step son Level of education: finished high school Any household tobacco use? Yes Any household pets? Yes 2 cats Drug/Alcohol: Social Info Question Answer Notes Drugs Have you used drugs other than those for medical reasons in the past 12 months? Yes Methamphetamine? No Crack? No LSD? No Ecstacy? No Prescription opiates? No Marijuana? Yes Ketamine? No PCP? No Is there a minor (18 years or younger) at risk at home? No Are you still using? Yes Do you want treatment? No AUDIT-C (Standard) Did you have a drink containi ng alcohol in the past year? Yes How often did you have a drink containing alcohol in the past year? Monthly or less (1 point) How many drinks did you have on a typical day when you were drinking in the past year? 3 or 4 drinks (1 point) How often did you have six or more drinks on one occasion in the past year? Less than monthly (1 point) Caffeine Intake: 2-3 cups per day Tobacco Use: Social Info Question Answer Notes Tobacco Control (Standard) Tobacco use: Former smoker When did you start smoking? 02/24/2024 When did you stop smoking? 05/17/2024 How long has it been since you last smoked? 1-5 years Additional Findings: Tobacco non-user Current no nsmoker Additional Details Category Social Info Options Details Drug/Alcohol: Do you smoke marijuana? Adm its Do you drink alcohol? No Problems Problem Type SNOMED Code ICD Code Onset Dates Problem Status W/U Status Risk Notes Problem Screening for cardiovascular system disease (455859105) Encounter for screening for cardiovascular disorders (Z13.6) Active confirmed Problem Obsessive-compuls torres disorder (503934782) Mixed obsessional thoughts and acts (F42.2) Active confirmed Problem Depression Screening (556739581) Encounter for screening for depression (Z13.31) Active confirmed Problem Generalized anxiety disorder (28715123) LINO (generalized anxiety disorder) (F41.1) Active confirmed Problem Moderate recurrent major depression (62198080) MDD (major depressive disorder), recurrent episode, moderate (F33.1) Active confirmed Problem Chronic insomnia (800145610) Chronic insomnia (F51.04) Active confirmed Problem Posttraumatic stress disorder (17031532) Chronic post-traumatic stress disorder (PTSD) (F43.12) Active confirmed Problem Nondependent cannabis abuse (518293596) Marijuana use (F12.90) Active confirmed Problem Overactive urinary bladder (disorder) (677548165) OAB (overactive bladder) (N32.81) Active confirmed Vital Signs Heart Rate 83 /min 08/25/2024 Height-cm 167.64 cm 08/25/2024 Blood pressure diastolic 86 mm Hg 08/25/2024 Weight-kg 108.86 kg 08/25/2024 Height 66 in 08/25/2024 Blood pressure systolic 122 mm Hg 08/25/2024 Weight 240 lbs 08/25/2024 BMI 38.73 kg/m2 08/25/2024 Encounters Encounter Location Date Provider Diagnosis [facility] [employer] [address] [address] 05/26/2024 Cheyenne Therkasandra Marijuana use F12.90 ; MDD (major depressive disorder), recurrent episode, moderate F33.1 ; LINO (generalized anxiety disorder) F41.1 ; Chronic post-traumatic stress disorder (PTSD) F43.12 ; OAB (overactive bladder) N32.81 and Chronic insomnia F51.04 [facility] [employer] [address] [address] 06/09/2024 Cheyenne Thery Marijuana use F12.90 ; MDD (major depressive disorder), recurrent episode, moderate F33.1 ; LINO (generalized anxiety disorder) F41.1 ; Chronic post-traumatic stress disorder (PTSD) F43.12 ; OAB (overactive bladder) N32.81 and Chronic insomnia F51.04 [facility] [employer] [address] [address] 08/04/2024 Cheyenne Thery Encounter for screen ing for depression Z13.31 ; Encounter for screening for cardiovascular disorders Z13.6 ; Marijuana use F12.90 ; MDD (major depressive disorder), recurrent episode, moderate F33.1 ; LINO (generalized anxiety disorder) F41.1 ; Chronic post-traumatic stress disorder (PTSD) F43.12 ; OAB (overactive bladder) N32.81 and Chronic insomnia F51.04 [facility] [address] [address] 08/25/2024 Cheyenne Thery Encounter for screen ing for depression Z13.31 ; MDD (major depressive disorder), recurrent episode, moderate F33.1 ; Encounter for screening for cardiovascular disorders Z13.6 ; Marijuana use F12.90 ; LINO (generalized anxiety disorder) F41.1 ; Chronic post-traumatic stress disorder (PTSD) F43.12 ; OAB (overactive bladder) N32.81 ; Chronic insomnia F51.04 and Mixed obsessional thoughts and acts F42.2 [facility], [facility] [address] [facility] [address] [place] [address] 09/22/2024 Gretchen Hawley [facility], [facility] [address] [facility] [address] [place] [address] 09/22/2024 Cheyenne Therkasandra [facility], [facility] [address] [address] 04/27/2024 Cheyenne Thery [facility], [facility] [address] [address] 04/29/2024 Cheyenne Livelykasandra [facility], [facility] [address] [address] 04/29/2024 Cheyenne Thery [facility], [facility] [address] [address] 07/22/2024 Cheyenne Thery [facility], [facility] [address] [address] 07/22/2024 Cheyenne Thery [facility], [facility] [address] [address] 07/22/2024 Cheyenne Valero Assessments Encounter Date Diagnosis (ICD Code) Assessment Notes Treatment Notes Treatment Clinical Notes Section Notes 05/26/2024 MDD (major depressive disorder), recurrent episode, moderate (ICD-10 - F33.1) Preventing Depression From Coming Back: Care Instructions material was published, Learning About How to Get Help During a Mental Health Crisis material was published, Learning About Depression material was published, Learning About Depression Screening material was published, Seasonal Affective Disorder: Care Instructions material was published 1. DEPRESSION discuss and educated on adding Seroquel 25 mg at bedtime for depression, anxiety, agitation and mood Prozac 20 mg daily for depression and anxiety PCP filled 2. Anxiety Prozac 20 mg daily for depression and anxiety- PCP filled Vistaril 50 mg PRN PCP filled 3. Insomnia sleep hygeine sleep study- negative 2017 4. PTSD discuss therapy and patient will consider discuss and educated on Prazosin 1 mg at bedtime monitor B/P 5.Cannabis use Recommend decrease/stop cannabis use as it can negatively impact mood, motivation, anxiety, sleep, focus/concentrati on/memory (vigilance, elasticity, processing and attention); can also contribute to development of psychosis. http_s://www.nim .nih.gov/health/t opics/mental-heal th-medications http_s://www.venu .org/About-Mental -Illness/Treatmen ts/Mental-Health- Medications Recommend decrease/stop cannabis use as it may be negatively impacting mood, motivation, anxiety, sleep, focus; can also contribute to development of psychosis Cannabis/marijuan a information: http_s://[place].nih .gov/publications /drugfacts/cannab is-marijuana http_s://www.weipass/canna ikq-wid-trhppnab- marijuana-adhd/ http_s://www.venu .org/About-Mental -Illness/Mental-H ealth-Conditions http_s://Bday/depressi on/the-cognitive- lefjhbzp-nz-mbhcv ssion#treatments http__s://www.[facility].nih.gov/health/ topics/mental-hea lth-medications http__s://www.nam i.org/About-Menta l-Illness/Treatme nts/Mental-Health -Medications educated on all medications, benefits, side effects and risk, and educated on depression, anxiety, and ADHD, mood d/o and educated on compliance of medications, metabolic and movement d/o education appointment's, continue therapy discussion with patient about course of treatment and patient instructions. education on serotonin syndrome Discussed and educated pt regarding benzodiazepines are generally not intended for prolonged use and that use can cause tolerance, dependence, depression, and associated memory issues including dementias (this list is not exhaustive). Benzodiazepine use is generally not recommended concurrently with pain medications and/or other controlled substances educated on all medications, benefits, side effects and risk, and educated on depression, anxiety, and ADHD, mood d/o and educated on compliance of medications, metabolic and movement d/o education appointment is, continue therapy discussion with patient about course of treatment and patient instructions. education on serotonin syndrome SSRI/SNRI side effects discussed including but not limited to, gastric upset, nausea, vomiting, diarrhea and/or constipation, weight changes, sexual side effects including loss of libido, increased suicidal thoughts/behavior s in children and young adults, and serotonin syndrome. Second generation antipsychotics (SGAs) have metabolic syndrome issues with weight gain, increase in prolactin, increased waist circumference, increased lipids, and increased glucose. Thus routine monitoring of weight, metabolic labs, etc. is indicated. A general rank ordering of antipsychotics that have the greatest to the least risk of metabolic effects is olanzapine, quetiapine, risperidone, ziprasidone, and aripiprazole. However, weight gain can occur with all of these drugs and considerable variability exists among patients receiving the same drug regarding the risk of metabolic effects. Anti-psychotic agents not only increase the risk of metabolic disorder, they also increase the risk of CVA, akathisia, and movement disorders including EPS or tardive dyskinesia (more common with first generation antipsychotics) and more. Elderly- discussed risks, cognition, sedation, falls, metabolic, movement and atypical antipsychotics carry a black-box warning for increased risk of and cerebrovascular events in dementia. Medication Management and Follow-Up - Plan: - Schedule follow-up appointments every 1-3 months to monitor the patient's response to the medication regimen. - Reinforce the importance of avoiding recreational drug use due to potential neurotoxicity and interactions with prescribed medications. 05/26/2024 Marijuana use (ICD-10 - F12.90) Marijuana Use: Care Instructions material was published, Learning About Cannabis Use Disorder material was published 1. DEPRESSION discuss and educated on adding Seroquel 25 mg at bedtime for depression, anxiety, agitation and mood Prozac 20 mg daily for depression and anxiety PCP filled 2. Anxiety Prozac 20 mg daily for depression and anxiety- PCP filled Vistaril 50 mg PRN PCP filled 3. Insomnia sleep hygeine sleep study- negative 2017 4. PTSD discuss therapy and patient will consider discuss and educated on Prazosin 1 mg at bedtime monitor B/P 5.Cannabis use Recommend decrease/stop cannabis use as it can negatively impact mood, motivation, anxiety, sleep, focus/concentrati on/memory (vigilance, elasticity, processing and attention); can also contribute to development of psychosis. http_s://www.nimh .nih.gov/health/t opics/mental-heal th-medications http_s://www.venu .org/About-Mental -Illness/Treatmen ts/Mental-Health- Medications Recommend decrease/stop cannabis use as it may be negatively impacting mood, motivation, anxiety, sleep, focus; can also contribute to development of psychosis Cannabis/marijuan a information: http_s://[place].nih .gov/publications /drugfacts/cannab is-marijuana http_s://wwwKonnect Solutions/canna aot-civ-ykgnvtiw- marijuana-adhd/ http_s://www.venu .org/About-Mental -Illness/Mental-H ealth-Conditions http_s://Bday/depressi on/the-cognitive- nqnonmzm-ne-wmaho ssion#treatments http__s://www.[facility].nih.gov/health/ topics/mental-hea lth-medications http__s://www.nam i.org/About-Menta l-Illness/Treatme nts/Mental-Health -Medications educated on all medications, benefits, side effects and risk, and educated on depression, anxiety, and ADHD, mood d/o and educated on compliance of medications, metabolic and movement d/o education appointment's, continue therapy discussion with patient about course of treatment and patient instructions. education on serotonin syndrome Discussed and educated pt regarding benzodiazepines are generally not intended for prolonged use and that use can cause tolerance, dependence, depression, and associated memory issues including dementias (this list is not exhaustive). Benzodiazepine use is generally not recommended concurrently with pain medications and/or other controlled substances educated on all medications, benefits, side effects and risk, and educated on depression, anxiety, and ADHD, mood d/o and educated on compliance of medications, metabolic and movement d/o education appointment is, continue therapy discussion with patient about course of treatment and patient instructions. education on serotonin syndrome SSRI/SNRI side effects discussed including but not limited to, gastric upset, nausea, vomiting, diarrhea and/or constipation, weight changes, sexual side effects including loss of libido, increased suicidal thoughts/behavior s in children and young adults, and serotonin syndrome. Second generation antipsychotics (SGAs) have metabolic syndrome issues with weight gain, increase in prolactin, increased waist circumference, increased lipids, and increased glucose. Thus routine monitoring of weight, metabolic labs, etc. is indicated. A general rank ordering of antipsychotics that have the greatest to the least risk of metabolic effects is olanzapine, quetiapine, risperidone, ziprasidone, and aripiprazole. However, weight gain can occur with all of these drugs and considerable variability exists among patients receiving the same drug regarding the risk of metabolic effects. Anti-psychotic agents not only increase the risk of metabolic disorder, they also increase the risk of CVA, akathisia, and movement disorders including EPS or tardive dyskinesia (more common with first generation antipsychotics) and more. Elderly- discussed risks, cognition, sedation, falls, metabolic, movement and atypical antipsychotics carry a black-box warning for increased risk of and cerebrovascular events in dementia. Medication Management and Follow-Up - Plan: - Schedule follow-up appointments every 1-3 months to monitor the patient's response to the medication regimen. - Reinforce the importance of avoiding recreational drug use due to potential neurotoxicity and interactions with prescribed medications. 06/09/2024 Marijuana use (ICD-10 - F12.90) Marijuana Use: Care Instructions material was published, Learning About Cannabis Use Disorder material was published 1. DEPRESSION discuss and educated on all rx Increase Seroquel 50 mg at bedtime for depression, anxiety, agitation and mood Prozac 20 mg daily for depression and anxiety PCP filled 2. Anxiety Prozac 20 mg daily for depression and anxiety- PCP filled Vistaril 50 mg PRN PCP filled- patient reported not romulo did not help 3. Insomnia sleep hygeine sleep study- negative 2017 4. PTSD discuss therapy and patient agreed - schedule therapy SANDRA discuss and educated on medication Prazosin 1 mg at bedtime- Not having nightmares or flashbacks often and if does would be related to a trigger no rx at this time refer to therapy 5.Cannabis use Recommend decrease/stop cannabis use as it can negatively impact mood, motivation, anxiety, sleep, focus/concentrati on/memory (vigilance, elasticity, processing and attention); can also contribute to development of psychosis. http_s://www.nimh .nih.gov/health/t opics/mental-heal th-medications http_s://www.venu .org/About-Mental -Illness/Treatmen ts/Mental-Health- Medications Recommend decrease/stop cannabis use as it may be negatively impacting mood, motivation, anxiety, sleep, focus; can also contribute to development of psychosis Cannabis/marijuan a information: http_s://[place].nih .gov/publications /drugfacts/cannab is-marijuana http_s://www.weipass/vee ppc-nti-bsdozawm- marijuana-adhd/ http_s://www.venu .org/About-Mental -Illness/Mental-H ealth-Conditions http_s://psychMindedn Audience/depressi on/the-cognitive- jqenhbhl-kh-kqzhi ssion#treatments http__s://www.nim .nih.gov/health/ topics/mental-hea lth-medications http__s://www.nam i.org/About-Menta l-Illness/Treatme nts/Mental-Health -Medications educated on all medications, benefits, side effects and risk, and educated on depression, anxiety, and ADHD, mood d/o and educated on compliance of medications, metabolic and movement d/o education appointment's, continue therapy discussion with patient about course of treatment and patient instructions. education on serotonin syndrome Discussed and educated pt regarding benzodiazepines are generally not intended for prolonged use and that use can cause tolerance, dependence, depression, and associated memory issues including dementias (this list is not exhaustive). Benzodiazepine use is generally not recommended concurrently with pain medications and/or other controlled substances educated on all medications, benefits, side effects and risk, and educated on depression, anxiety, and ADHD, mood d/o and educated on compliance of medications, metabolic and movement d/o education appointment is, continue therapy discussion with patient about course of treatment and patient instructions. education on serotonin syndrome SSRI/SNRI side effects discussed including but not limited to, gastric upset, nausea, vomiting, diarrhea and/or constipation, weight changes, sexual side effects including loss of libido, increased suicidal thoughts/behavior s in children and young adults, and serotonin syndrome. Second generation antipsychotics (SGAs) have metabolic syndrome issues with weight gain, increase in prolactin, increased waist circumference, increased lipids, and increased glucose. Thus routine monitoring of weight, metabolic labs, etc. is indicated. A general rank ordering of antipsychotics that have the greatest to the least risk of metabolic effects is olanzapine, quetiapine, risperidone, ziprasidone, and aripiprazole. However, weight gain can occur with all of these drugs and considerable variability exists among patients receiving the same drug regarding the risk of metabolic effects. Anti-psychotic agents not only increase the risk of metabolic disorder, they also increase the risk of CVA, akathisia, and movement disorders including EPS or tardive dyskinesia (more common with first generation antipsychotics) and more. Medication Management and Follow-Up - Plan: - Schedule follow-up appointments every 1-3 months to monitor the patient's response to the medication regimen. - Reinforce the importance of avoiding recreational drug use due to potential neurotoxicity and interactions with prescribed medications. 08/04/2024 Encounter for screening for depression (ICD-10 - Z13.31) 1. DEPRESSION discuss and educated on all rx Increase Seroquel 100 mg at bedtime for depression, anxiety, agitation and mood and also help sleep Prozac 20 mg daily for depression and anxiety PCP filled 2. Anxiety Prozac 20 mg daily for depression and anxiety- PCP filled Vistaril 50 mg PRN PCP filled- patient reported not taking did not help 3. Insomnia sleep hygeine sleep study- negative 2017 4. PTSD discuss therapy and patient agreed - schedule therapy SANDRA discuss and educated on medication Prazosin 1 mg at bedtime- reported nightmares and flashbacks related to a trigger no rx at this time Refer to therapy hx trauma and flashbacks and dreams 6.Cannabis use Recommend decrease/stop cannabis use as it can negatively impact mood, motivation, anxiety, sleep, focus/concentrati on/memory (vigilance, elasticity, processing and attention); can also contribute to development of psychosis. http_s://www.nimh .nih.gov/health/t opics/mental-heal th-medications http_s://www.venu .org/About-Mental -Illness/Treatmen ts/Mental-Health- Medications Recommend decrease/stop cannabis use as it may be negatively impacting mood, motivation, anxiety, sleep, focus; can also contribute to development of psychosis Cannabis/marijuan a information: http_s://[place].nih .gov/publications /drugfacts/cannab is-marijuana http_s://www.weipass/vee grz-sfu-jgbbavyo- marijuana-adhd/ http_s://www.venu .org/About-Mental -Illness/Mental-H ealth-Conditions http_s://psychcen SNTMNTl.com/depressi on/the-cognitive- jkknedzb-ve-thoir ssion#treatments http__s://www.[facility].nih.gov/health/ topics/mental-hea lth-medications http__s://www.nam i.org/About-Menta l-Illness/Treatme nts/Mental-Health -Medications educated on all medications, benefits, side effects and risk, and educated on depression, anxiety, and ADHD, mood d/o and educated on compliance of medications, metabolic and movement d/o education appointment's, continue therapy discussion with patient about course of treatment and patient instructions. education on serotonin syndrome Discussed and educated pt regarding benzodiazepines are generally not intended for prolonged use and that use can cause tolerance, dependence, depression, and associated memory issues including dementias (this list is not exhaustive). Benzodiazepine use is generally not recommended concurrently with pain medications and/or other controlled substances educated on all medications, benefits, side effects and risk, and educated on depression, anxiety, and ADHD, mood d/o and educated on compliance of medications, metabolic and movement d/o education appointment is, continue therapy discussion with patient about course of treatment and patient instructions. education on serotonin syndrome SSRI/SNRI side effects discussed including but not limited to, gastric upset, nausea, vomiting, diarrhea and/or constipation, weight changes, sexual side effects including loss of libido, increased suicidal thoughts/behavior s in children and young adults, and serotonin syndrome. Second generation antipsychotics (SGAs) have metabolic syndrome issues with weight gain, increase in prolactin, increased waist circumference, increased lipids, and increased glucose. Thus routine monitoring of weight, metabolic labs, etc. is indicated. A general rank ordering of antipsychotics that have the greatest to the least risk of metabolic effects is olanzapine, quetiapine, risperidone, ziprasidone, and aripiprazole. However, weight gain can occur with all of these drugs and considerable variability exists among patients receiving the same drug regarding the risk of metabolic effects. Anti-psychotic agents not only increase the risk of metabolic disorder, they also increase the risk of CVA, akathisia, and movement disorders including EPS or tardive dyskinesia (more common with first generation antipsychotics) and more. Medication Management and Follow-Up - Plan: - Schedule follow-up appointments every 1-3 months to monitor the patient's response to the medication regimen. - Reinforce the importance of avoiding recreational drug use due to potential neurotoxicity and interactions with prescribed medications. 08/25/2024 Encounter for screening for depression (ICD-10 - Z13.31) 1. DEPRESSION discuss and educated on all rx Seroquel 100 mg at bedtime for depression, anxiety, agitation and mood and also help sleep Increase Prozac 40 mg daily for depression and anxiety 2. Anxiety Prozac 40 mg daily for depression and anxiety- hx Vistaril 50 mg PRN PCP filled- patient reported not taking did not help 3. Insomnia sleep hygeine sleep study- negative 2017 4. PTSD discuss therapy and patient agreed - schedule therapy SANDRA discuss and educated on medication Prazosin 1 mg at bedtime- reported nightmares and flashbacks related to a trigger no rx at this time Refer to therapy hx trauma and flashbacks and dreams 6.Cannabis use no control substance prescribed by SANDRA Recommend decrease/stop cannabis use as it can negatively impact mood, motivation, anxiety, sleep, focus/concentrati on/memory (vigilance, elasticity, processing and attention); can also contribute to development of psychosis. http_s://www.nimh .nih.gov/health/t opics/mental-heal th-medications http_s://www.venu .org/About-Mental -Illness/Treatmen ts/Mental-Health- Medications Recommend decrease/stop cannabis use as it may be negatively impacting mood, motivation, anxiety, sleep, focus; can also contribute to development of psychosis Cannabis/marijuan a information: http_s://[place].nih .gov/publications /drugfacts/cannab is-marijuana http_s://www.weipass/canna vty-ceu-svgibrvq- marijuana-adhd/ 7. OCD Prozac 40 mg daily therapy - Sara scheduled 10/08 educated on OCD and medications http_s://www.venu .org/About-Mental -Illness/Mental-H ealth-Conditions http_s://psychcen tral.com/depressi on/the-cognitive- ljqsnuxr-yh-cbver ssion#treatments http__s://www.[facility].nih.gov/health/ topics/mental-hea [facility]-medications http__s://www.nam i.org/About-Menta l-Illness/Treatme nts/Mental-Health -Medications educated on all medications, benefits, side effects and risk, and educated on depression, anxiety, and ADHD, mood d/o and educated on compliance of medications, metabolic and movement d/o education appointment's, continue therapy discussion with patient about course of treatment and patient instructions. education on serotonin syndrome Discussed and educated pt regarding benzodiazepines are generally not intended for prolonged use and that use can cause tolerance, dependence, depression, and associated memory issues including dementias (this list is not exhaustive). Benzodiazepine use is generally not recommended concurrently with pain medications and/or other controlled substances educated on all medications, benefits, side effects and risk, and educated on depression, anxiety, and ADHD, mood d/o and educated on compliance of medications, metabolic and movement d/o education appointment is, continue therapy discussion with patient about course of treatment and patient instructions. education on serotonin syndrome SSRI/SNRI side effects discussed including but not limited to, gastric upset, nausea, vomiting, diarrhea and/or constipation, weight changes, sexual side effects including loss of libido, increased suicidal thoughts/behavior s in children and young adults, and serotonin syndrome. Second generation antipsychotics (SGAs) have metabolic syndrome issues with weight gain, increase in prolactin, increased waist circumference, increased lipids, and increased glucose. Thus routine monitoring of weight, metabolic labs, etc. is indicated. A general rank ordering of antipsychotics that have the greatest to the least risk of metabolic effects is olanzapine, quetiapine, risperidone, ziprasidone, and aripiprazole. However, weight gain can occur with all of these drugs and considerable variability exists among patients receiving the same drug regarding the risk of metabolic effects. Anti-psychotic agents not only increase the risk of metabolic disorder, they also increase the risk of CVA, akathisia, and movement disorders including EPS or tardive dyskinesia (more common with first generation antipsychotics) and more. Medication Management and Follow-Up - Plan: - Schedule follow-up appointments every 1-3 months to monitor the patient's response to the medication regimen. - Reinforce the importance of avoiding recreational drug use due to potential neurotoxicity and interactions with prescribed medications. 08/25/2024 MDD (major depressive disorder), recurrent episode, moderate (ICD-10 - F33.1) Preventing Depression From Coming Back: Care Instructions material was published, Learning About How to Get Help During a Mental Health Crisis material was published, Learning About Depression material was published, Learning About Depression Screening material was published, Seasonal Affective Disorder: Care Instructions material was published 1. DEPRESSION discuss and educated on all rx Seroquel 100 mg at bedtime for depression, anxiety, agitation and mood and also help sleep Increase Prozac 40 mg daily for depression and anxiety 2. Anxiety Prozac 40 mg daily for depression and anxiety- hx Vistaril 50 mg PRN PCP filled- patient reported not taking did not help 3. Insomnia sleep hygeine sleep study- negative 2017 4. PTSD discuss therapy and patient agreed - schedule therapy SANDRA discuss and educated on medication Prazosin 1 mg at bedtime- reported nightmares and flashbacks related to a trigger no rx at this time Refer to therapy hx trauma and flashbacks and dreams 6.Cannabis use no control substance prescribed by SANDRA Recommend decrease/stop cannabis use as it can negatively impact mood, motivation, anxiety, sleep, focus/concentrati on/memory (vigilance, elasticity, processing and attention); can also contribute to development of psychosis. http_s://www.nimh .nih.gov/health/t opics/mental-heal th-medications http_s://www.venu .org/About-Mental -Illness/Treatmen ts/Mental-Health- Medications Recommend decrease/stop cannabis use as it may be negatively impacting mood, motivation, anxiety, sleep, focus; can also contribute to development of psychosis Cannabis/marijuan a information: http_s://[place].nih .gov/publications /drugfacts/cannab is-marijuana http_s://www.weipass/canna fnc-udd-znbajpdb- marijuana-adhd/ 7. OCD Prozac 40 mg daily therapy - Sara scheduled 10/08 educated on OCD and medications http_s://www.venu .org/About-Mental -Illness/Mental-H ealth-Conditions http_s://psychcen tral.com/depressi on/the-cognitive- mcavrklw-yg-mvhua ssion#treatments http__s://www.nim [facility].nih.gov/health/ topics/mental-hea [facility]-medications http__s://www.nam i.org/About-Menta l-Illness/Treatme nts/Mental-Health -Medications educated on all medications, benefits, side effects and risk, and educated on depression, anxiety, and ADHD, mood d/o and educated on compliance of medications, metabolic and movement d/o education appointment's, continue therapy discussion with patient about course of treatment and patient instructions. education on serotonin syndrome Discussed and educated pt regarding benzodiazepines are generally not intended for prolonged use and that use can cause tolerance, dependence, depression, and associated memory issues including dementias (this list is not exhaustive). Benzodiazepine use is generally not recommended concurrently with pain medications and/or other controlled substances educated on all medications, benefits, side effects and risk, and educated on depression, anxiety, and ADHD, mood d/o and educated on compliance of medications, metabolic and movement d/o education appointment is, continue therapy discussion with patient about course of treatment and patient instructions. education on serotonin syndrome SSRI/SNRI side effects discussed including but not limited to, gastric upset, nausea, vomiting, diarrhea and/or constipation, weight changes, sexual side effects including loss of libido, increased suicidal thoughts/behavior s in children and young adults, and serotonin syndrome. Second generation antipsychotics (SGAs) have metabolic syndrome issues with weight gain, increase in prolactin, increased waist circumference, increased lipids, and increased glucose. Thus routine monitoring of weight, metabolic labs, etc. is indicated. A general rank ordering of antipsychotics that have the greatest to the least risk of metabolic effects is olanzapine, quetiapine, risperidone, ziprasidone, and aripiprazole. However, weight gain can occur with all of these drugs and considerable variability exists among patients receiving the same drug regarding the risk of metabolic effects. Anti-psychotic agents not only increase the risk of metabolic disorder, they also increase the risk of CVA, akathisia, and movement disorders including EPS or tardive dyskinesia (more common with first generation antipsychotics) and more. Medication Management and Follow-Up - Plan: - Schedule follow-up appointments every 1-3 months to monitor the patient's response to the medication regimen. - Reinforce the importance of avoiding recreational drug use due to potential neurotoxicity and interactions with prescribed medications. 08/25/2024 Encounter for screening for cardiovascular disorders (ICD-10 - Z13.6) 1. DEPRESSION discuss and educated on all rx Seroquel 100 mg at bedtime for depression, anxiety, agitation and mood and also help sleep Increase Prozac 40 mg daily for depression and anxiety 2. Anxiety Prozac 40 mg daily for depression and anxiety- hx Vistaril 50 mg PRN PCP filled- patient reported not taking did not help 3. Insomnia sleep hygeine sleep study- negative 2017 4. PTSD discuss therapy and patient agreed - schedule therapy ASNDRA discuss and educated on medication Prazosin 1 mg at bedtime- reported nightmares and flashbacks related to a trigger no rx at this time Refer to therapy hx trauma and flashbacks and dreams 6.Cannabis use no control substance prescribed by SANDRA Recommend decrease/stop cannabis use as it can negatively impact mood, motivation, anxiety, sleep, focus/concentrati on/memory (vigilance, elasticity, processing and attention); can also contribute to development of psychosis. http_s://www.nim .nih.gov/health/t opics/mental-heal th-medications http_s://www.venu .org/About-Mental -Illness/Treatmen ts/Mental-Health- Medications Recommend decrease/stop cannabis use as it may be negatively impacting mood, motivation, anxiety, sleep, focus; can also contribute to development of psychosis Cannabis/marijuan a information: http_s://[place].nih .gov/publications /drugfacts/cannab is-marijuana http_s://www.weipass/canna chx-fps-oifocjxd- marijuana-adhd/ 7. OCD Prozac 40 mg daily therapy - Sara scheduled 10/08 educated on OCD and medications http_s://www.venu .org/About-Mental -Illness/Mental-H ealth-Conditions http_s://psychcen tral.com/depressi on/the-cognitive- ilbwvefy-pu-vqbtk ssion#treatments http__s://www.nim .nih.gov/health/ topics/mental-hea lth-medications http__s://www.nam i.org/About-Menta l-Illness/Treatme nts/Mental-Health -Medications educated on all medications, benefits, side effects and risk, and educated on depression, anxiety, and ADHD, mood d/o and educated on compliance of medications, metabolic and movement d/o education appointment's, continue therapy discussion with patient about course of treatment and patient instructions. education on serotonin syndrome Discussed and educated pt regarding benzodiazepines are generally not intended for prolonged use and that use can cause tolerance, dependence, depression, and associated memory issues including dementias (this list is not exhaustive). Benzodiazepine use is generally not recommended concurrently with pain medications and/or other controlled substances educated on all medications, benefits, side effects and risk, and educated on depression, anxiety, and ADHD, mood d/o and educated on compliance of medications, metabolic and movement d/o education appointment is, continue therapy discussion with patient about course of treatment and patient instructions. education on serotonin syndrome SSRI/SNRI side effects discussed including but not limited to, gastric upset, nausea, vomiting, diarrhea and/or constipation, weight changes, sexual side effects including loss of libido, increased suicidal thoughts/behavior s in children and young adults, and serotonin syndrome. Second generation antipsychotics (SGAs) have metabolic syndrome issues with weight gain, increase in prolactin, increased waist circumference, increased lipids, and increased glucose. Thus routine monitoring of weight, metabolic labs, etc. is indicated. A general rank ordering of antipsychotics that have the greatest to the least risk of metabolic effects is olanzapine, quetiapine, risperidone, ziprasidone, and aripiprazole. However, weight gain can occur with all of these drugs and considerable variability exists among patients receiving the same drug regarding the risk of metabolic effects. Anti-psychotic agents not only increase the risk of metabolic disorder, they also increase the risk of CVA, akathisia, and movement disorders including EPS or tardive dyskinesia (more common with first generation antipsychotics) and more. Medication Management and Follow-Up - Plan: - Schedule follow-up appointments every 1-3 months to monitor the patient's response to the medication regimen. - Reinforce the importance of avoiding recreational drug use due to potential neurotoxicity and interactions with prescribed medications. 08/04/2024 Encounter for screening for cardiovascular disorders (ICD-10 - Z13.6) 1. DEPRESSION discuss and educated on all rx Increase Seroquel 100 mg at bedtime for depression, anxiety, agitation and mood and also help sleep Prozac 20 mg daily for depression and anxiety PCP filled 2. Anxiety Prozac 20 mg daily for depression and anxiety- PCP filled Vistaril 50 mg PRN PCP filled- patient reported not taking did not help 3. Insomnia sleep hygeine sleep study- negative 2017 4. PTSD discuss therapy and patient agreed - schedule therapy SANDRA discuss and educated on medication Prazosin 1 mg at bedtime- reported nightmares and flashbacks related to a trigger no rx at this time Refer to therapy hx trauma and flashbacks and dreams 6.Cannabis use Recommend decrease/stop cannabis use as it can negatively impact mood, motivation, anxiety, sleep, focus/concentrati on/memory (vigilance, elasticity, processing and attention); can also contribute to development of psychosis. http_s://www.nim .nih.gov/health/t opics/mental-heal th-medications http_s://www.vneu .org/About-Mental -Illness/Treatmen ts/Mental-Health- Medications Recommend decrease/stop cannabis use as it may be negatively impacting mood, motivation, anxiety, sleep, focus; can also contribute to development of psychosis Cannabis/marijuan a information: http_s://[place].nih .gov/publications /drugfacts/cannab is-marijuana http_s://www.weipass/canna xbm-qcw-hfaodclo- marijuana-adhd/ http_s://www.venu .org/About-Mental -Illness/Mental-H ealth-Conditions http_s://Bday/depressi on/the-cognitive- njdpdgls-kq-oaxgl ssion#treatments http__s://www.[facility].nih.gov/health/ topics/mental-hea lth-medications http__s://www.nam i.org/About-Menta l-Illness/Treatme nts/Mental-Health -Medications educated on all medications, benefits, side effects and risk, and educated on depression, anxiety, and ADHD, mood d/o and educated on compliance of medications, metabolic and movement d/o education appointment's, continue therapy discussion with patient about course of treatment and patient instructions. education on serotonin syndrome Discussed and educated pt regarding benzodiazepines are generally not intended for prolonged use and that use can cause tolerance, dependence, depression, and associated memory issues including dementias (this list is not exhaustive). Benzodiazepine use is generally not recommended concurrently with pain medications and/or other controlled substances educated on all medications, benefits, side effects and risk, and educated on depression, anxiety, and ADHD, mood d/o and educated on compliance of medications, metabolic and movement d/o education appointment is, continue therapy discussion with patient about course of treatment and patient instructions. education on serotonin syndrome SSRI/SNRI side effects discussed including but not limited to, gastric upset, nausea, vomiting, diarrhea and/or constipation, weight changes, sexual side effects including loss of libido, increased suicidal thoughts/behavior s in children and young adults, and serotonin syndrome. Second generation antipsychotics (SGAs) have metabolic syndrome issues with weight gain, increase in prolactin, increased waist circumference, increased lipids, and increased glucose. Thus routine monitoring of weight, metabolic labs, etc. is indicated. A general rank ordering of antipsychotics that have the greatest to the least risk of metabolic effects is olanzapine, quetiapine, risperidone, ziprasidone, and aripiprazole. However, weight gain can occur with all of these drugs and considerable variability exists among patients receiving the same drug regarding the risk of metabolic effects. Anti-psychotic agents not only increase the risk of metabolic disorder, they also increase the risk of CVA, akathisia, and movement disorders including EPS or tardive dyskinesia (more common with first generation antipsychotics) and more. Medication Management and Follow-Up - Plan: - Schedule follow-up appointments every 1-3 months to monitor the patient's response to the medication regimen. - Reinforce the importance of avoiding recreational drug use due to potential neurotoxicity and interactions with prescribed medications. 06/09/2024 MDD (major depressive disorder), recurrent episode, moderate (ICD-10 - F33.1) Preventing Depression From Coming Back: Care Instructions material was published, Learning About How to Get Help During a Mental Health Crisis material was published, Learning About Depression material was published, Learning About Depression Screening material was published, Seasonal Affective Disorder: Care Instructions material was published 1. DEPRESSION discuss and educated on all rx Increase Seroquel 50 mg at bedtime for depression, anxiety, agitation and mood Prozac 20 mg daily for depression and anxiety PCP filled 2. Anxiety Prozac 20 mg daily for depression and anxiety- PCP filled Vistaril 50 mg PRN PCP filled- patient reported not romulo did not help 3. Insomnia sleep hygeine sleep study- negative 2017 4. PTSD discuss therapy and patient agreed - schedule therapy SANDRA discuss and educated on medication Prazosin 1 mg at bedtime- Not having nightmares or flashbacks often and if does would be related to a trigger no rx at this time refer to therapy 5.Cannabis use Recommend decrease/stop cannabis use as it can negatively impact mood, motivation, anxiety, sleep, focus/concentrati on/memory (vigilance, elasticity, processing and attention); can also contribute to development of psychosis. http_s://www.nim .nih.gov/health/t opics/mental-heal th-medications http_s://www.venu .org/About-Mental -Illness/Treatmen ts/Mental-Health- Medications Recommend decrease/stop cannabis use as it may be negatively impacting mood, motivation, anxiety, sleep, focus; can also contribute to development of psychosis Cannabis/marijuan a information: http_s://[place].nih .gov/publications /drugfacts/cannab is-marijuana http_s://www.weipass/cannjanki zbc-qsl-ztkkzsfo- marijuana-adhd/ http_s://www.venu .org/About-Mental -Illness/Mental-H ealth-Conditions http_s://psychPostachio/depressi on/the-cognitive- igppmhjf-sj-sgnka ssion#treatments http__s://www.[facility].nih.gov/health/ topics/mental-hea lth-medications http__s://www.nam i.org/About-Menta l-Illness/Treatme nts/Mental-Health -Medications educated on all medications, benefits, side effects and risk, and educated on depression, anxiety, and ADHD, mood d/o and educated on compliance of medications, metabolic and movement d/o education appointment's, continue therapy discussion with patient about course of treatment and patient instructions. education on serotonin syndrome Discussed and educated pt regarding benzodiazepines are generally not intended for prolonged use and that use can cause tolerance, dependence, depression, and associated memory issues including dementias (this list is not exhaustive). Benzodiazepine use is generally not recommended concurrently with pain medications and/or other controlled substances educated on all medications, benefits, side effects and risk, and educated on depression, anxiety, and ADHD, mood d/o and educated on compliance of medications, metabolic and movement d/o education appointment is, continue therapy discussion with patient about course of treatment and patient instructions. education on serotonin syndrome SSRI/SNRI side effects discussed including but not limited to, gastric upset, nausea, vomiting, diarrhea and/or constipation, weight changes, sexual side effects including loss of libido, increased suicidal thoughts/behavior s in children and young adults, and serotonin syndrome. Second generation antipsychotics (SGAs) have metabolic syndrome issues with weight gain, increase in prolactin, increased waist circumference, increased lipids, and increased glucose. Thus routine monitoring of weight, metabolic labs, etc. is indicated. A general rank ordering of antipsychotics that have the greatest to the least risk of metabolic effects is olanzapine, quetiapine, risperidone, ziprasidone, and aripiprazole. However, weight gain can occur with all of these drugs and considerable variability exists among patients receiving the same drug regarding the risk of metabolic effects. Anti-psychotic agents not only increase the risk of metabolic disorder, they also increase the risk of CVA, akathisia, and movement disorders including EPS or tardive dyskinesia (more common with first generation antipsychotics) and more. Medication Management and Follow-Up - Plan: - Schedule follow-up appointments every 1-3 months to monitor the patient's response to the medication regimen. - Reinforce the importance of avoiding recreational drug use due to potential neurotoxicity and interactions with prescribed medications. 05/26/2024 LINO (generalized anxiety disorder) (ICD-10 - F41.1) Generalized Anxiety Disorder: Care Instructions material was published, Learning About Generalized Anxiety Disorder material was published, Learning About Anxiety Disorders material was published, Learning About Transcranial Magnetic Stimulation (TMS) material was published 1. DEPRESSION discuss and educated on adding Seroquel 25 mg at bedtime for depression, anxiety, agitation and mood Prozac 20 mg daily for depression and anxiety PCP filled 2. Anxiety Prozac 20 mg daily for depression and anxiety- PCP filled Vistaril 50 mg PRN PCP filled 3. Insomnia sleep hygeine sleep study- negative 2017 4. PTSD discuss therapy and patient will consider discuss and educated on Prazosin 1 mg at bedtime monitor B/P 5.Cannabis use Recommend decrease/stop cannabis use as it can negatively impact mood, motivation, anxiety, sleep, focus/concentrati on/memory (vigilance, elasticity, processing and attention); can also contribute to development of psychosis. http_s://www.nimh .nih.gov/health/t opics/mental-heal th-medications http_s://www.venu .org/About-Mental -Illness/Treatmen ts/Mental-Health- Medications Recommend decrease/stop cannabis use as it may be negatively impacting mood, motivation, anxiety, sleep, focus; can also contribute to development of psychosis Cannabis/marijuan a information: http_s://[place].nih .gov/publications /drugfacts/cannab is-marijuana http_s://www[employer]/canna obw-dem-ghstsqez- marijuana-adhd/ http_s://www.venu .org/About-Mental -Illness/Mental-H ealth-Conditions http_s://psychPostachio/depressi on/the-cognitive- ncngqpoy-fx-pslfa ssion#treatments http__s://www.[facility].nih.gov/health/ topics/mental-hea lth-medications http__s://www.nam i.org/About-Menta l-Illness/Treatme nts/Mental-Health -Medications educated on all medications, benefits, side effects and risk, and educated on depression, anxiety, and ADHD, mood d/o and educated on compliance of medications, metabolic and movement d/o education appointment's, continue therapy discussion with patient about course of treatment and patient instructions. education on serotonin syndrome Discussed and educated pt regarding benzodiazepines are generally not intended for prolonged use and that use can cause tolerance, dependence, depression, and associated memory issues including dementias (this list is not exhaustive). Benzodiazepine use is generally not recommended concurrently with pain medications and/or other controlled substances educated on all medications, benefits, side effects and risk, and educated on depression, anxiety, and ADHD, mood d/o and educated on compliance of medications, metabolic and movement d/o education appointment is, continue therapy discussion with patient about course of treatment and patient instructions. education on serotonin syndrome SSRI/SNRI side effects discussed including but not limited to, gastric upset, nausea, vomiting, diarrhea and/or constipation, weight changes, sexual side effects including loss of libido, increased suicidal thoughts/behavior s in children and young adults, and serotonin syndrome. Second generation antipsychotics (SGAs) have metabolic syndrome issues with weight gain, increase in prolactin, increased waist circumference, increased lipids, and increased glucose. Thus routine monitoring of weight, metabolic labs, etc. is indicated. A general rank ordering of antipsychotics that have the greatest to the least risk of metabolic effects is olanzapine, quetiapine, risperidone, ziprasidone, and aripiprazole. However, weight gain can occur with all of these drugs and considerable variability exists among patients receiving the same drug regarding the risk of metabolic effects. Anti-psychotic agents not only increase the risk of metabolic disorder, they also increase the risk of CVA, akathisia, and movement disorders including EPS or tardive dyskinesia (more common with first generation antipsychotics) and more. Elderly- discussed risks, cognition, sedation, falls, metabolic, movement and atypical antipsychotics carry a black-box warning for increased risk of and cerebrovascular events in dementia. Medication Management and Follow-Up - Plan: - Schedule follow-up appointments every 1-3 months to monitor the patient's response to the medication regimen. - Reinforce the importance of avoiding recreational drug use due to potential neurotoxicity and interactions with prescribed medications. 05/26/2024 Chronic post-traumatic stress disorder (PTSD) (ICD-10 - F43.12) Post-Traumatic Stress Disorder (PTSD): Care Instructions material was published 1. DEPRESSION discuss and educated on adding Seroquel 25 mg at bedtime for depression, anxiety, agitation and mood Prozac 20 mg daily for depression and anxiety PCP filled 2. Anxiety Prozac 20 mg daily for depression and anxiety- PCP filled Vistaril 50 mg PRN PCP filled 3. Insomnia sleep hygeine sleep study- negative 2017 4. PTSD discuss therapy and patient will consider discuss and educated on Prazosin 1 mg at bedtime monitor B/P 5.Cannabis use Recommend decrease/stop cannabis use as it can negatively impact mood, motivation, anxiety, sleep, focus/concentrati on/memory (vigilance, elasticity, processing and attention); can also contribute to development of psychosis. http_s://www.nimh .nih.gov/health/t opics/mental-heal th-medications http_s://www.venu .org/About-Mental -Illness/Treatmen ts/Mental-Health- Medications Recommend decrease/stop cannabis use as it may be negatively impacting mood, motivation, anxiety, sleep, focus; can also contribute to development of psychosis Cannabis/marijuan a information: http_s://[place].nih .gov/publications /drugfacts/cannab is-marijuana http_s://www.weipass/vee dnd-xin-lhjpwccc- marijuana-adhd/ http_s://www.venu .org/About-Mental -Illness/Mental-H ealth-Conditions http_s://psychcen [employer]/depressi on/the-cognitive- gxifncup-uf-uyyfb ssion#treatments http__s://www.nim .nih.gov/health/ topics/mental-hea lth-medications http__s://www.nam i.org/About-Menta l-Illness/Treatme nts/Mental-Health -Medications educated on all medications, benefits, side effects and risk, and educated on depression, anxiety, and ADHD, mood d/o and educated on compliance of medications, metabolic and movement d/o education appointment's, continue therapy discussion with patient about course of treatment and patient instructions. education on serotonin syndrome Discussed and educated pt regarding benzodiazepines are generally not intended for prolonged use and that use can cause tolerance, dependence, depression, and associated memory issues including dementias (this list is not exhaustive). Benzodiazepine use is generally not recommended concurrently with pain medications and/or other controlled substances educated on all medications, benefits, side effects and risk, and educated on depression, anxiety, and ADHD, mood d/o and educated on compliance of medications, metabolic and movement d/o education appointment is, continue therapy discussion with patient about course of treatment and patient instructions. education on serotonin syndrome SSRI/SNRI side effects discussed including but not limited to, gastric upset, nausea, vomiting, diarrhea and/or constipation, weight changes, sexual side effects including loss of libido, increased suicidal thoughts/behavior s in children and young adults, and serotonin syndrome. Second generation antipsychotics (SGAs) have metabolic syndrome issues with weight gain, increase in prolactin, increased waist circumference, increased lipids, and increased glucose. Thus routine monitoring of weight, metabolic labs, etc. is indicated. A general rank ordering of antipsychotics that have the greatest to the least risk of metabolic effects is olanzapine, quetiapine, risperidone, ziprasidone, and aripiprazole. However, weight gain can occur with all of these drugs and considerable variability exists among patients receiving the same drug regarding the risk of metabolic effects. Anti-psychotic agents not only increase the risk of metabolic disorder, they also increase the risk of CVA, akathisia, and movement disorders including EPS or tardive dyskinesia (more common with first generation antipsychotics) and more. Elderly- discussed risks, cognition, sedation, falls, metabolic, movement and atypical antipsychotics carry a black-box warning for increased risk of and cerebrovascular events in dementia. Medication Management and Follow-Up - Plan: - Schedule follow-up appointments every 1-3 months to monitor the patient's response to the medication regimen. - Reinforce the importance of avoiding recreational drug use due to potential neurotoxicity and interactions with prescribed medications. 06/09/2024 LINO (generalized anxiety disorder) (ICD-10 - F41.1) Generalized Anxiety Disorder: Care Instructions material was published, Learning About Generalized Anxiety Disorder material was published, Learning About Anxiety Disorders material was published, Learning About Transcranial Magnetic Stimulation (TMS) material was published 1. DEPRESSION discuss and educated on all rx Increase Seroquel 50 mg at bedtime for depression, anxiety, agitation and mood Prozac 20 mg daily for depression and anxiety PCP filled 2. Anxiety Prozac 20 mg daily for depression and anxiety- PCP filled Vistaril 50 mg PRN PCP filled- patient reported not romulo did not help 3. Insomnia sleep hygeine sleep study- negative 2017 4. PTSD discuss therapy and patient agreed - schedule therapy SANDRA discuss and educated on medication Prazosin 1 mg at bedtime- Not having nightmares or flashbacks often and if does would be related to a trigger no rx at this time refer to therapy 5.Cannabis use Recommend decrease/stop cannabis use as it can negatively impact mood, motivation, anxiety, sleep, focus/concentrati on/memory (vigilance, elasticity, processing and attention); can also contribute to development of psychosis. http_s://www.nimh .nih.gov/health/t opics/mental-heal th-medications http_s://www.venu .org/About-Mental -Illness/Treatmen ts/Mental-Health- Medications Recommend decrease/stop cannabis use as it may be negatively impacting mood, motivation, anxiety, sleep, focus; can also contribute to development of psychosis Cannabis/marijuan a information: http_s://[place].nih .gov/publications /drugfacts/cannab is-marijuana http_s://www.weipass/canna djg-yfd-evnuosgf- marijuana-adhd/ http_s://www.venu .org/About-Mental -Illness/Mental-H ealth-Conditions http_s://psychPlayed.com/depressi on/the-cognitive- nbzeruxn-ki-lilyd ssion#treatments http__s://www.[facility].nih.gov/health/ topics/mental-hea lt-medications http__s://www.nam i.org/About-Menta l-Illness/Treatme nts/Mental-Health -Medications educated on all medications, benefits, side effects and risk, and educated on depression, anxiety, and ADHD, mood d/o and educated on compliance of medications, metabolic and movement d/o education appointment's, continue therapy discussion with patient about course of treatment and patient instructions. education on serotonin syndrome Discussed and educated pt regarding benzodiazepines are generally not intended for prolonged use and that use can cause tolerance, dependence, depression, and associated memory issues including dementias (this list is not exhaustive). Benzodiazepine use is generally not recommended concurrently with pain medications and/or other controlled substances educated on all medications, benefits, side effects and risk, and educated on depression, anxiety, and ADHD, mood d/o and educated on compliance of medications, metabolic and movement d/o education appointment is, continue therapy discussion with patient about course of treatment and patient instructions. education on serotonin syndrome SSRI/SNRI side effects discussed including but not limited to, gastric upset, nausea, vomiting, diarrhea and/or constipation, weight changes, sexual side effects including loss of libido, increased suicidal thoughts/behavior s in children and young adults, and serotonin syndrome. Second generation antipsychotics (SGAs) have metabolic syndrome issues with weight gain, increase in prolactin, increased waist circumference, increased lipids, and increased glucose. Thus routine monitoring of weight, metabolic labs, etc. is indicated. A general rank ordering of antipsychotics that have the greatest to the least risk of metabolic effects is olanzapine, quetiapine, risperidone, ziprasidone, and aripiprazole. However, weight gain can occur with all of these drugs and considerable variability exists among patients receiving the same drug regarding the risk of metabolic effects. Anti-psychotic agents not only increase the risk of metabolic disorder, they also increase the risk of CVA, akathisia, and movement disorders including EPS or tardive dyskinesia (more common with first generation antipsychotics) and more. Medication Management and Follow-Up - Plan: - Schedule follow-up appointments every 1-3 months to monitor the patient's response to the medication regimen. - Reinforce the importance of avoiding recreational drug use due to potential neurotoxicity and interactions with prescribed medications. 08/04/2024 Marijuana use (ICD-10 - F12.90) Marijuana Use: Care Instructions material was published, Learning About Cannabis Use Disorder material was published 1. DEPRESSION discuss and educated on all rx Increase Seroquel 100 mg at bedtime for depression, anxiety, agitation and mood and also help sleep Prozac 20 mg daily for depression and anxiety PCP filled 2. Anxiety Prozac 20 mg daily for depression and anxiety- PCP filled Vistaril 50 mg PRN PCP filled- patient reported not taking did not help 3. Insomnia sleep hygeine sleep study- negative 2017 4. PTSD discuss therapy and patient agreed - schedule therapy SANDRA discuss and educated on medication Prazosin 1 mg at bedtime- reported nightmares and flashbacks related to a trigger no rx at this time Refer to therapy hx trauma and flashbacks and dreams 6.Cannabis use Recommend decrease/stop cannabis use as it can negatively impact mood, motivation, anxiety, sleep, focus/concentrati on/memory (vigilance, elasticity, processing and attention); can also contribute to development of psychosis. http_s://www.nimh .nih.gov/health/t opics/mental-heal th-medications http_s://www.venu .org/About-Mental -Illness/Treatmen ts/Mental-Health- Medications Recommend decrease/stop cannabis use as it may be negatively impacting mood, motivation, anxiety, sleep, focus; can also contribute to development of psychosis Cannabis/marijuan a information: http_s://[place].nih .gov/publications /drugfacts/cannab is-marijuana http_s://www.weipass/vee moh-erk-sxusoaev- marijuana-adhd/ http_s://www.venu .org/About-Mental -Illness/Mental-H ealth-Conditions http_s://psychcen tral.com/depressi on/the-cognitive- yfygnbbl-ni-thhsm ssion#treatments http__s://www.nim .nih.gov/health/ topics/mental-hea [facility]-medications http__s://www.nam i.org/About-Menta l-Illness/Treatme nts/Mental-Health -Medications educated on all medications, benefits, side effects and risk, and educated on depression, anxiety, and ADHD, mood d/o and educated on compliance of medications, metabolic and movement d/o education appointment's, continue therapy discussion with patient about course of treatment and patient instructions. education on serotonin syndrome Discussed and educated pt regarding benzodiazepines are generally not intended for prolonged use and that use can cause tolerance, dependence, depression, and associated memory issues including dementias (this list is not exhaustive). Benzodiazepine use is generally not recommended concurrently with pain medications and/or other controlled substances educated on all medications, benefits, side effects and risk, and educated on depression, anxiety, and ADHD, mood d/o and educated on compliance of medications, metabolic and movement d/o education appointment is, continue therapy discussion with patient about course of treatment and patient instructions. education on serotonin syndrome SSRI/SNRI side effects discussed including but not limited to, gastric upset, nausea, vomiting, diarrhea and/or constipation, weight changes, sexual side effects including loss of libido, increased suicidal thoughts/behavior s in children and young adults, and serotonin syndrome. Second generation antipsychotics (SGAs) have metabolic syndrome issues with weight gain, increase in prolactin, increased waist circumference, increased lipids, and increased glucose. Thus routine monitoring of weight, metabolic labs, etc. is indicated. A general rank ordering of antipsychotics that have the greatest to the least risk of metabolic effects is olanzapine, quetiapine, risperidone, ziprasidone, and aripiprazole. However, weight gain can occur with all of these drugs and considerable variability exists among patients receiving the same drug regarding the risk of metabolic effects. Anti-psychotic agents not only increase the risk of metabolic disorder, they also increase the risk of CVA, akathisia, and movement disorders including EPS or tardive dyskinesia (more common with first generation antipsychotics) and more. Medication Management and Follow-Up - Plan: - Schedule follow-up appointments every 1-3 months to monitor the patient's response to the medication regimen. - Reinforce the importance of avoiding recreational drug use due to potential neurotoxicity and interactions with prescribed medications. 08/25/2024 Marijuana use (ICD-10 - F12.90) Marijuana Use: Care Instructions material was published, Learning About Cannabis Use Disorder material was published 1. DEPRESSION discuss and educated on all rx Seroquel 100 mg at bedtime for depression, anxiety, agitation and mood and also help sleep Increase Prozac 40 mg daily for depression and anxiety 2. Anxiety Prozac 40 mg daily for depression and anxiety- hx Vistaril 50 mg PRN PCP filled- patient reported not taking did not help 3. Insomnia sleep hygeine sleep study- negative 2017 4. PTSD discuss therapy and patient agreed - schedule therapy SANDRA discuss and educated on medication Prazosin 1 mg at bedtime- reported nightmares and flashbacks related to a trigger no rx at this time Refer to therapy hx trauma and flashbacks and dreams 6.Cannabis use no control substance prescribed by SANDRA Recommend decrease/stop cannabis use as it can negatively impact mood, motivation, anxiety, sleep, focus/concentrati on/memory (vigilance, elasticity, processing and attention); can also contribute to development of psychosis. http_s://www.nimh .nih.gov/health/t opics/mental-heal th-medications http_s://www.venu .org/About-Mental -Illness/Treatmen ts/Mental-Health- Medications Recommend decrease/stop cannabis use as it may be negatively impacting mood, motivation, anxiety, sleep, focus; can also contribute to development of psychosis Cannabis/marijuan a information: http_s://[place].nih .gov/publications /drugfacts/cannab is-marijuana http_s://www.weipass/canna chv-npi-ssuymnyj- marijuana-adhd/ 7. OCD Prozac 40 mg daily therapy - Sara scheduled 10/08 educated on OCD and medications http_s://www.venu .org/About-Mental -Illness/Mental-H ealth-Conditions http_s://psychcen tral.com/depressi on/the-cognitive- mgoqhycf-hp-mubkc ssion#treatments http__s://www.nim .nih.gov/health/ topics/mental-hea lth-medications http__s://www.[facility].org/About-Menta l-Illness/Treatme nts/Mental-Health -Medications educated on all medications, benefits, side effects and risk, and educated on depression, anxiety, and ADHD, mood d/o and educated on compliance of medications, metabolic and movement d/o education appointment's, continue therapy discussion with patient about course of treatment and patient instructions. education on serotonin syndrome Discussed and educated pt regarding benzodiazepines are generally not intended for prolonged use and that use can cause tolerance, dependence, depression, and associated memory issues including dementias (this list is not exhaustive). Benzodiazepine use is generally not recommended concurrently with pain medications and/or other controlled substances educated on all medications, benefits, side effects and risk, and educated on depression, anxiety, and ADHD, mood d/o and educated on compliance of medications, metabolic and movement d/o education appointment is, continue therapy discussion with patient about course of treatment and patient instructions. education on serotonin syndrome SSRI/SNRI side effects discussed including but not limited to, gastric upset, nausea, vomiting, diarrhea and/or constipation, weight changes, sexual side effects including loss of libido, increased suicidal thoughts/behavior s in children and young adults, and serotonin syndrome. Second generation antipsychotics (SGAs) have metabolic syndrome issues with weight gain, increase in prolactin, increased waist circumference, increased lipids, and increased glucose. Thus routine monitoring of weight, metabolic labs, etc. is indicated. A general rank ordering of antipsychotics that have the greatest to the least risk of metabolic effects is olanzapine, quetiapine, risperidone, ziprasidone, and aripiprazole. However, weight gain can occur with all of these drugs and considerable variability exists among patients receiving the same drug regarding the risk of metabolic effects. Anti-psychotic agents not only increase the risk of metabolic disorder, they also increase the risk of CVA, akathisia, and movement disorders including EPS or tardive dyskinesia (more common with first generation antipsychotics) and more. Medication Management and Follow-Up - Plan: - Schedule follow-up appointments every 1-3 months to monitor the patient's response to the medication regimen. - Reinforce the importance of avoiding recreational drug use due to potential neurotoxicity and interactions with prescribed medications. 08/25/2024 LINO (generalized anxiety disorder) (ICD-10 - F41.1) Generalized Anxiety Disorder: Care Instructions material was published, Learning About Generalized Anxiety Disorder material was published, Learning About Anxiety Disorders material was published, Learning About Transcranial Magnetic Stimulation (TMS) material was published 1. DEPRESSION discuss and educated on all rx Seroquel 100 mg at bedtime for depression, anxiety, agitation and mood and also help sleep Increase Prozac 40 mg daily for depression and anxiety 2. Anxiety Prozac 40 mg daily for depression and anxiety- hx Vistaril 50 mg PRN PCP filled- patient reported not taking did not help 3. Insomnia sleep hygeine sleep study- negative 2017 4. PTSD discuss therapy and patient agreed - schedule therapy SANDRA discuss and educated on medication Prazosin 1 mg at bedtime- reported nightmares and flashbacks related to a trigger no rx at this time Refer to therapy hx trauma and flashbacks and dreams 6.Cannabis use no control substance prescribed by SANDRA Recommend decrease/stop cannabis use as it can negatively impact mood, motivation, anxiety, sleep, focus/concentrati on/memory (vigilance, elasticity, processing and attention); can also contribute to development of psychosis. http_s://www.nimh .nih.gov/health/t opics/mental-heal th-medications http_s://www.venu .org/About-Mental -Illness/Treatmen ts/Mental-Health- Medications Recommend decrease/stop cannabis use as it may be negatively impacting mood, motivation, anxiety, sleep, focus; can also contribute to development of psychosis Cannabis/marijuan a information: http_s://[place].nih .gov/publications /drugfacts/cannab is-marijuana http_s://www.weipass/vee fjw-oxm-pjhaaafe- marijuana-adhd/ 7. OCD Prozac 40 mg daily therapy - Sara scheduled 10/08 educated on OCD and medications http_s://www.venu .org/About-Mental -Illness/Mental-H ealth-Conditions http_s://psychcen tral.com/depressi on/the-cognitive- cmrcwogn-vp-immjr ssion#treatments http__s://www.nim .nih.gov/health/ topics/mental-hea lth-medications http__s://www.nam i.org/About-Menta l-Illness/Treatme nts/Mental-Health -Medications educated on all medications, benefits, side effects and risk, and educated on depression, anxiety, and ADHD, mood d/o and educated on compliance of medications, metabolic and movement d/o education appointment's, continue therapy discussion with patient about course of treatment and patient instructions. education on serotonin syndrome Discussed and educated pt regarding benzodiazepines are generally not intended for prolonged use and that use can cause tolerance, dependence, depression, and associated memory issues including dementias (this list is not exhaustive). Benzodiazepine use is generally not recommended concurrently with pain medications and/or other controlled substances educated on all medications, benefits, side effects and risk, and educated on depression, anxiety, and ADHD, mood d/o and educated on compliance of medications, metabolic and movement d/o education appointment is, continue therapy discussion with patient about course of treatment and patient instructions. education on serotonin syndrome SSRI/SNRI side effects discussed including but not limited to, gastric upset, nausea, vomiting, diarrhea and/or constipation, weight changes, sexual side effects including loss of libido, increased suicidal thoughts/behavior s in children and young adults, and serotonin syndrome. Second generation antipsychotics (SGAs) have metabolic syndrome issues with weight gain, increase in prolactin, increased waist circumference, increased lipids, and increased glucose. Thus routine monitoring of weight, metabolic labs, etc. is indicated. A general rank ordering of antipsychotics that have the greatest to the least risk of metabolic effects is olanzapine, quetiapine, risperidone, ziprasidone, and aripiprazole. However, weight gain can occur with all of these drugs and considerable variability exists among patients receiving the same drug regarding the risk of metabolic effects. Anti-psychotic agents not only increase the risk of metabolic disorder, they also increase the risk of CVA, akathisia, and movement disorders including EPS or tardive dyskinesia (more common with first generation antipsychotics) and more. Medication Management and Follow-Up - Plan: - Schedule follow-up appointments every 1-3 months to monitor the patient's response to the medication regimen. - Reinforce the importance of avoiding recreational drug use due to potential neurotoxicity and interactions with prescribed medications. 06/09/2024 Chronic post-traumatic stress disorder (PTSD) (ICD-10 - F43.12) Post-Traumatic Stress Disorder (PTSD): Care Instructions material was published 1. DEPRESSION discuss and educated on all rx Increase Seroquel 50 mg at bedtime for depression, anxiety, agitation and mood Prozac 20 mg daily for depression and anxiety PCP filled 2. Anxiety Prozac 20 mg daily for depression and anxiety- PCP filled Vistaril 50 mg PRN PCP filled- patient reported not romulo did not help 3. Insomnia sleep hygeine sleep study- negative 2017 4. PTSD discuss therapy and patient agreed - schedule therapy SANDRA discuss and educated on medication Prazosin 1 mg at bedtime- Not having nightmares or flashbacks often and if does would be related to a trigger no rx at this time refer to therapy 5.Cannabis use Recommend decrease/stop cannabis use as it can negatively impact mood, motivation, anxiety, sleep, focus/concentrati on/memory (vigilance, elasticity, processing and attention); can also contribute to development of psychosis. http_s://www.nim .nih.gov/health/t opics/mental-heal th-medications http_s://www.venu .org/About-Mental -Illness/Treatmen ts/Mental-Health- Medications Recommend decrease/stop cannabis use as it may be negatively impacting mood, motivation, anxiety, sleep, focus; can also contribute to development of psychosis Cannabis/marijuan a information: http_s://[place].nih .gov/publications /drugfacts/cannab is-marijuana http_s://www.weipass/canna ron-rpz-cicgmowf- marijuana-adhd/ http_s://www.venu .org/About-Mental -Illness/Mental-H ealth-Conditions http_s://psychcen Audience/depressi on/the-cognitive- ydrxrdvp-ez-zqfio ssion#treatments http__s://www.nim .nih.gov/health/ topics/mental-hea lth-medications http__s://www.nam i.org/About-Menta l-Illness/Treatme nts/Mental-Health -Medications educated on all medications, benefits, side effects and risk, and educated on depression, anxiety, and ADHD, mood d/o and educated on compliance of medications, metabolic and movement d/o education appointment's, continue therapy discussion with patient about course of treatment and patient instructions. education on serotonin syndrome Discussed and educated pt regarding benzodiazepines are generally not intended for prolonged use and that use can cause tolerance, dependence, depression, and associated memory issues including dementias (this list is not exhaustive). Benzodiazepine use is generally not recommended concurrently with pain medications and/or other controlled substances educated on all medications, benefits, side effects and risk, and educated on depression, anxiety, and ADHD, mood d/o and educated on compliance of medications, metabolic and movement d/o education appointment is, continue therapy discussion with patient about course of treatment and patient instructions. education on serotonin syndrome SSRI/SNRI side effects discussed including but not limited to, gastric upset, nausea, vomiting, diarrhea and/or constipation, weight changes, sexual side effects including loss of libido, increased suicidal thoughts/behavior s in children and young adults, and serotonin syndrome. Second generation antipsychotics (SGAs) have metabolic syndrome issues with weight gain, increase in prolactin, increased waist circumference, increased lipids, and increased glucose. Thus routine monitoring of weight, metabolic labs, etc. is indicated. A general rank ordering of antipsychotics that have the greatest to the least risk of metabolic effects is olanzapine, quetiapine, risperidone, ziprasidone, and aripiprazole. However, weight gain can occur with all of these drugs and considerable variability exists among patients receiving the same drug regarding the risk of metabolic effects. Anti-psychotic agents not only increase the risk of metabolic disorder, they also increase the risk of CVA, akathisia, and movement disorders including EPS or tardive dyskinesia (more common with first generation antipsychotics) and more. Medication Management and Follow-Up - Plan: - Schedule follow-up appointments every 1-3 months to monitor the patient's response to the medication regimen. - Reinforce the importance of avoiding recreational drug use due to potential neurotoxicity and interactions with prescribed medications. 08/04/2024 MDD (major depressive disorder), recurrent episode, moderate (ICD-10 - F33.1) Preventing Depression From Coming Back: Care Instructions material was published, Learning About How to Get Help During a Mental Health Crisis material was published, Learning About Depression material was published, Learning About Depression Screening material was published, Seasonal Affective Disorder: Care Instructions material was published 1. DEPRESSION discuss and educated on all rx Increase Seroquel 100 mg at bedtime for depression, anxiety, agitation and mood and also help sleep Prozac 20 mg daily for depression and anxiety PCP filled 2. Anxiety Prozac 20 mg daily for depression and anxiety- PCP filled Vistaril 50 mg PRN PCP filled- patient reported not taking did not help 3. Insomnia sleep hygeine sleep study- negative 2017 4. PTSD discuss therapy and patient agreed - schedule therapy SANDRA discuss and educated on medication Prazosin 1 mg at bedtime- reported nightmares and flashbacks related to a trigger no rx at this time Refer to therapy hx trauma and flashbacks and dreams 6.Cannabis use Recommend decrease/stop cannabis use as it can negatively impact mood, motivation, anxiety, sleep, focus/concentrati on/memory (vigilance, elasticity, processing and attention); can also contribute to development of psychosis. http_s://www.nim .nih.gov/health/t opics/mental-heal th-medications http_s://www.venu .org/About-Mental -Illness/Treatmen ts/Mental-Health- Medications Recommend decrease/stop cannabis use as it may be negatively impacting mood, motivation, anxiety, sleep, focus; can also contribute to development of psychosis Cannabis/marijuan a information: http_s://[place].nih .gov/publications /drugfacts/cannab is-marijuana http_s://www.weipass/canna hps-gas-sejclfrk- marijuana-adhd/ http_s://www.venu .org/About-Mental -Illness/Mental-H ealth-Conditions http_s://psychPostachio/depressi on/the-cognitive- bwjwxphu-wk-jlarg ssion#treatments http__s://www.[facility].nih.gov/health/ topics/mental-hea lth-medications http__s://www.nam i.org/About-Menta l-Illness/Treatme nts/Mental-Health -Medications educated on all medications, benefits, side effects and risk, and educated on depression, anxiety, and ADHD, mood d/o and educated on compliance of medications, metabolic and movement d/o education appointment's, continue therapy discussion with patient about course of treatment and patient instructions. education on serotonin syndrome Discussed and educated pt regarding benzodiazepines are generally not intended for prolonged use and that use can cause tolerance, dependence, depression, and associated memory issues including dementias (this list is not exhaustive). Benzodiazepine use is generally not recommended concurrently with pain medications and/or other controlled substances educated on all medications, benefits, side effects and risk, and educated on depression, anxiety, and ADHD, mood d/o and educated on compliance of medications, metabolic and movement d/o education appointment is, continue therapy discussion with patient about course of treatment and patient instructions. education on serotonin syndrome SSRI/SNRI side effects discussed including but not limited to, gastric upset, nausea, vomiting, diarrhea and/or constipation, weight changes, sexual side effects including loss of libido, increased suicidal thoughts/behavior s in children and young adults, and serotonin syndrome. Second generation antipsychotics (SGAs) have metabolic syndrome issues with weight gain, increase in prolactin, increased waist circumference, increased lipids, and increased glucose. Thus routine monitoring of weight, metabolic labs, etc. is indicated. A general rank ordering of antipsychotics that have the greatest to the least risk of metabolic effects is olanzapine, quetiapine, risperidone, ziprasidone, and aripiprazole. However, weight gain can occur with all of these drugs and considerable variability exists among patients receiving the same drug regarding the risk of metabolic effects. Anti-psychotic agents not only increase the risk of metabolic disorder, they also increase the risk of CVA, akathisia, and movement disorders including EPS or tardive dyskinesia (more common with first generation antipsychotics) and more. Medication Management and Follow-Up - Plan: - Schedule follow-up appointments every 1-3 months to monitor the patient's response to the medication regimen. - Reinforce the importance of avoiding recreational drug use due to potential neurotoxicity and interactions with prescribed medications. 05/26/2024 OAB (overactive bladder) (ICD-10 - N32.81) Urge Incontinence: Care Instructions material was published, Learning About Adult Protective Underwear for Women material was published, Kegel Exercises: Care Instructions material was published 1. DEPRESSION discuss and educated on adding Seroquel 25 mg at bedtime for depression, anxiety, agitation and mood Prozac 20 mg daily for depression and anxiety PCP filled 2. Anxiety Prozac 20 mg daily for depression and anxiety- PCP filled Vistaril 50 mg PRN PCP filled 3. Insomnia sleep hygeine sleep study- negative 2017 4. PTSD discuss therapy and patient will consider discuss and educated on Prazosin 1 mg at bedtime monitor B/P 5.Cannabis use Recommend decrease/stop cannabis use as it can negatively impact mood, motivation, anxiety, sleep, focus/concentrati on/memory (vigilance, elasticity, processing and attention); can also contribute to development of psychosis. http_s://www.nim .nih.gov/health/t opics/mental-heal th-medications http_s://www.venu .org/About-Mental -Illness/Treatmen ts/Mental-Health- Medications Recommend decrease/stop cannabis use as it may be negatively impacting mood, motivation, anxiety, sleep, focus; can also contribute to development of psychosis Cannabis/marijuan a information: http_s://[place].nih .gov/publications /drugfacts/cannab is-marijuana http_s://www.weipass/canna oig-dpk-amillzfg- marijuana-adhd/ http_s://www.venu .org/About-Mental -Illness/Mental-H ealth-Conditions http_s://psychcen Audience/depressi on/the-cognitive- wxmbrmuu-ci-jljtr ssion#treatments http__s://www.nim .nih.gov/health/ topics/mental-hea lth-medications http__s://www.nam i.org/About-Menta l-Illness/Treatme nts/Mental-Health -Medications educated on all medications, benefits, side effects and risk, and educated on depression, anxiety, and ADHD, mood d/o and educated on compliance of medications, metabolic and movement d/o education appointment's, continue therapy discussion with patient about course of treatment and patient instructions. education on serotonin syndrome Discussed and educated pt regarding benzodiazepines are generally not intended for prolonged use and that use can cause tolerance, dependence, depression, and associated memory issues including dementias (this list is not exhaustive). Benzodiazepine use is generally not recommended concurrently with pain medications and/or other controlled substances educated on all medications, benefits, side effects and risk, and educated on depression, anxiety, and ADHD, mood d/o and educated on compliance of medications, metabolic and movement d/o education appointment is, continue therapy discussion with patient about course of treatment and patient instructions. education on serotonin syndrome SSRI/SNRI side effects discussed including but not limited to, gastric upset, nausea, vomiting, diarrhea and/or constipation, weight changes, sexual side effects including loss of libido, increased suicidal thoughts/behavior s in children and young adults, and serotonin syndrome. Second generation antipsychotics (SGAs) have metabolic syndrome issues with weight gain, increase in prolactin, increased waist circumference, increased lipids, and increased glucose. Thus routine monitoring of weight, metabolic labs, etc. is indicated. A general rank ordering of antipsychotics that have the greatest to the least risk of metabolic effects is olanzapine, quetiapine, risperidone, ziprasidone, and aripiprazole. However, weight gain can occur with all of these drugs and considerable variability exists among patients receiving the same drug regarding the risk of metabolic effects. Anti-psychotic agents not only increase the risk of metabolic disorder, they also increase the risk of CVA, akathisia, and movement disorders including EPS or tardive dyskinesia (more common with first generation antipsychotics) and more. Elderly- discussed risks, cognition, sedation, falls, metabolic, movement and atypical antipsychotics carry a black-box warning for increased risk of and cerebrovascular events in dementia. Medication Management and Follow-Up - Plan: - Schedule follow-up appointments every 1-3 months to monitor the patient's response to the medication regimen. - Reinforce the importance of avoiding recreational drug use due to potential neurotoxicity and interactions with prescribed medications. 05/26/2024 Chronic insomnia (ICD-10 - F51.04) Insomnia: Care Instructions material was published, Learning About Sleeping Well material was published 1. DEPRESSION discuss and educated on adding Seroquel 25 mg at bedtime for depression, anxiety, agitation and mood Prozac 20 mg daily for depression and anxiety PCP filled 2. Anxiety Prozac 20 mg daily for depression and anxiety- PCP filled Vistaril 50 mg PRN PCP filled 3. Insomnia sleep hygeine sleep study- negative 2017 4. PTSD discuss therapy and patient will consider discuss and educated on Prazosin 1 mg at bedtime monitor B/P 5.Cannabis use Recommend decrease/stop cannabis use as it can negatively impact mood, motivation, anxiety, sleep, focus/concentrati on/memory (vigilance, elasticity, processing and attention); can also contribute to development of psychosis. http_s://www.nimh .nih.gov/health/t opics/mental-heal th-medications http_s://www.venu .org/About-Mental -Illness/Treatmen ts/Mental-Health- Medications Recommend decrease/stop cannabis use as it may be negatively impacting mood, motivation, anxiety, sleep, focus; can also contribute to development of psychosis Cannabis/marijuan a information: http_s://[place].nih .gov/publications /drugfacts/cannab is-marijuana http_s://www.weipass/canna zcs-lmg-zsyaoysi- marijuana-adhd/ http_s://www.venu .org/About-Mental -Illness/Mental-H ealth-Conditions http_s://Bday/depressi on/the-cognitive- hetkicxc-yx-xowwv ssion#treatments http__s://www.[facility].nih.gov/health/ topics/mental-hea lth-medications http__s://www.nam i.org/About-Menta l-Illness/Treatme nts/Mental-Health -Medications educated on all medications, benefits, side effects and risk, and educated on depression, anxiety, and ADHD, mood d/o and educated on compliance of medications, metabolic and movement d/o education appointment's, continue therapy discussion with patient about course of treatment and patient instructions. education on serotonin syndrome Discussed and educated pt regarding benzodiazepines are generally not intended for prolonged use and that use can cause tolerance, dependence, depression, and associated memory issues including dementias (this list is not exhaustive). Benzodiazepine use is generally not recommended concurrently with pain medications and/or other controlled substances educated on all medications, benefits, side effects and risk, and educated on depression, anxiety, and ADHD, mood d/o and educated on compliance of medications, metabolic and movement d/o education appointment is, continue therapy discussion with patient about course of treatment and patient instructions. education on serotonin syndrome SSRI/SNRI side effects discussed including but not limited to, gastric upset, nausea, vomiting, diarrhea and/or constipation, weight changes, sexual side effects including loss of libido, increased suicidal thoughts/behavior s in children and young adults, and serotonin syndrome. Second generation antipsychotics (SGAs) have metabolic syndrome issues with weight gain, increase in prolactin, increased waist circumference, increased lipids, and increased glucose. Thus routine monitoring of weight, metabolic labs, etc. is indicated. A general rank ordering of antipsychotics that have the greatest to the least risk of metabolic effects is olanzapine, quetiapine, risperidone, ziprasidone, and aripiprazole. However, weight gain can occur with all of these drugs and considerable variability exists among patients receiving the same drug regarding the risk of metabolic effects. Anti-psychotic agents not only increase the risk of metabolic disorder, they also increase the risk of CVA, akathisia, and movement disorders including EPS or tardive dyskinesia (more common with first generation antipsychotics) and more. Elderly- discussed risks, cognition, sedation, falls, metabolic, movement and atypical antipsychotics carry a black-box warning for increased risk of and cerebrovascular events in dementia. Medication Management and Follow-Up - Plan: - Schedule follow-up appointments every 1-3 months to monitor the patient's response to the medication regimen. - Reinforce the importance of avoiding recreational drug use due to potential neurotoxicity and interactions with prescribed medications. 08/04/2024 LINO (generalized anxiety disorder) (ICD-10 - F41.1) Generalized Anxiety Disorder: Care Instructions material was published, Learning About Generalized Anxiety Disorder material was published, Learning About Anxiety Disorders material was published, Learning About Transcranial Magnetic Stimulation (TMS) material was published 1. DEPRESSION discuss and educated on all rx Increase Seroquel 100 mg at bedtime for depression, anxiety, agitation and mood and also help sleep Prozac 20 mg daily for depression and anxiety PCP filled 2. Anxiety Prozac 20 mg daily for depression and anxiety- PCP filled Vistaril 50 mg PRN PCP filled- patient reported not taking did not help 3. Insomnia sleep hygeine sleep study- negative 2017 4. PTSD discuss therapy and patient agreed - schedule therapy SANDRA discuss and educated on medication Prazosin 1 mg at bedtime- reported nightmares and flashbacks related to a trigger no rx at this time Refer to therapy hx trauma and flashbacks and dreams 6.Cannabis use Recommend decrease/stop cannabis use as it can negatively impact mood, motivation, anxiety, sleep, focus/concentrati on/memory (vigilance, elasticity, processing and attention); can also contribute to development of psychosis. http_s://www.nimh .nih.gov/health/t opics/mental-heal th-medications http_s://www.venu .org/About-Mental -Illness/Treatmen ts/Mental-Health- Medications Recommend decrease/stop cannabis use as it may be negatively impacting mood, motivation, anxiety, sleep, focus; can also contribute to development of psychosis Cannabis/marijuan a information: http_s://[place].nih .gov/publications /drugfacts/cannab is-marijuana http_s://www.weipass/vee vjw-zsx-kwsvqbzy- marijuana-adhd/ http_s://www.venu .org/About-Mental -Illness/Mental-H ealth-Conditions http_s://psychcen OpenBookcom/depressi on/the-cognitive- fjvtqvhv-aa-xobax ssion#treatments http__s://www.nim .nih.gov/health/ topics/mental-hea lth-medications http__s://www.nam i.org/About-Menta l-Illness/Treatme nts/Mental-Health -Medications educated on all medications, benefits, side effects and risk, and educated on depression, anxiety, and ADHD, mood d/o and educated on compliance of medications, metabolic and movement d/o education appointment's, continue therapy discussion with patient about course of treatment and patient instructions. education on serotonin syndrome Discussed and educated pt regarding benzodiazepines are generally not intended for prolonged use and that use can cause tolerance, dependence, depression, and associated memory issues including dementias (this list is not exhaustive). Benzodiazepine use is generally not recommended concurrently with pain medications and/or other controlled substances educated on all medications, benefits, side effects and risk, and educated on depression, anxiety, and ADHD, mood d/o and educated on compliance of medications, metabolic and movement d/o education appointment is, continue therapy discussion with patient about course of treatment and patient instructions. education on serotonin syndrome SSRI/SNRI side effects discussed including but not limited to, gastric upset, nausea, vomiting, diarrhea and/or constipation, weight changes, sexual side effects including loss of libido, increased suicidal thoughts/behavior s in children and young adults, and serotonin syndrome. Second generation antipsychotics (SGAs) have metabolic syndrome issues with weight gain, increase in prolactin, increased waist circumference, increased lipids, and increased glucose. Thus routine monitoring of weight, metabolic labs, etc. is indicated. A general rank ordering of antipsychotics that have the greatest to the least risk of metabolic effects is olanzapine, quetiapine, risperidone, ziprasidone, and aripiprazole. However, weight gain can occur with all of these drugs and considerable variability exists among patients receiving the same drug regarding the risk of metabolic effects. Anti-psychotic agents not only increase the risk of metabolic disorder, they also increase the risk of CVA, akathisia, and movement disorders including EPS or tardive dyskinesia (more common with first generation antipsychotics) and more. Medication Management and Follow-Up - Plan: - Schedule follow-up appointments every 1-3 months to monitor the patient's response to the medication regimen. - Reinforce the importance of avoiding recreational drug use due to potential neurotoxicity and interactions with prescribed medications. 06/09/2024 OAB (overactive bladder) (ICD-10 - N32.81) Urge Incontinence: Care Instructions material was published, Learning About Adult Protective Underwear for Women material was published, Kegel Exercises: Care Instructions material was published 1. DEPRESSION discuss and educated on all rx Increase Seroquel 50 mg at bedtime for depression, anxiety, agitation and mood Prozac 20 mg daily for depression and anxiety PCP filled 2. Anxiety Prozac 20 mg daily for depression and anxiety- PCP filled Vistaril 50 mg PRN PCP filled- patient reported not romulo did not help 3. Insomnia sleep hygeine sleep study- negative 2017 4. PTSD discuss therapy and patient agreed - schedule therapy SANDRA discuss and educated on medication Prazosin 1 mg at bedtime- Not having nightmares or flashbacks often and if does would be related to a trigger no rx at this time refer to therapy 5.Cannabis use Recommend decrease/stop cannabis use as it can negatively impact mood, motivation, anxiety, sleep, focus/concentrati on/memory (vigilance, elasticity, processing and attention); can also contribute to development of psychosis. http_s://www.nimh .nih.gov/health/t opics/mental-heal th-medications http_s://www.venu .org/About-Mental -Illness/Treatmen ts/Mental-Health- Medications Recommend decrease/stop cannabis use as it may be negatively impacting mood, motivation, anxiety, sleep, focus; can also contribute to development of psychosis Cannabis/marijuan a information: http_s://[place].nih .gov/publications /drugfacts/cannab is-marijuana http_s://www.weipass/benitojanki yqj-wmh-xlgiqsyb- marijuana-adhd/ http_s://www.venu .org/About-Mental -Illness/Mental-H ealth-Conditions http_s://psychcen [employer]/depressi on/the-cognitive- yeozeeqw-jg-pqpds ssion#treatments http__s://www.[facility].nih.gov/health/ topics/mental-hea lth-medications http__s://www.nam i.org/About-Menta l-Illness/Treatme nts/Mental-Health -Medications educated on all medications, benefits, side effects and risk, and educated on depression, anxiety, and ADHD, mood d/o and educated on compliance of medications, metabolic and movement d/o education appointment's, continue therapy discussion with patient about course of treatment and patient instructions. education on serotonin syndrome Discussed and educated pt regarding benzodiazepines are generally not intended for prolonged use and that use can cause tolerance, dependence, depression, and associated memory issues including dementias (this list is not exhaustive). Benzodiazepine use is generally not recommended concurrently with pain medications and/or other controlled substances educated on all medications, benefits, side effects and risk, and educated on depression, anxiety, and ADHD, mood d/o and educated on compliance of medications, metabolic and movement d/o education appointment is, continue therapy discussion with patient about course of treatment and patient instructions. education on serotonin syndrome SSRI/SNRI side effects discussed including but not limited to, gastric upset, nausea, vomiting, diarrhea and/or constipation, weight changes, sexual side effects including loss of libido, increased suicidal thoughts/behavior s in children and young adults, and serotonin syndrome. Second generation antipsychotics (SGAs) have metabolic syndrome issues with weight gain, increase in prolactin, increased waist circumference, increased lipids, and increased glucose. Thus routine monitoring of weight, metabolic labs, etc. is indicated. A general rank ordering of antipsychotics that have the greatest to the least risk of metabolic effects is olanzapine, quetiapine, risperidone, ziprasidone, and aripiprazole. However, weight gain can occur with all of these drugs and considerable variability exists among patients receiving the same drug regarding the risk of metabolic effects. Anti-psychotic agents not only increase the risk of metabolic disorder, they also increase the risk of CVA, akathisia, and movement disorders including EPS or tardive dyskinesia (more common with first generation antipsychotics) and more. Medication Management and Follow-Up - Plan: - Schedule follow-up appointments every 1-3 months to monitor the patient's response to the medication regimen. - Reinforce the importance of avoiding recreational drug use due to potential neurotoxicity and interactions with prescribed medications. 08/25/2024 Chronic post-traumatic stress disorder (PTSD) (ICD-10 - F43.12) Post-Traumatic Stress Disorder (PTSD): Care Instructions material was published 1. DEPRESSION discuss and educated on all rx Seroquel 100 mg at bedtime for depression, anxiety, agitation and mood and also help sleep Increase Prozac 40 mg daily for depression and anxiety 2. Anxiety Prozac 40 mg daily for depression and anxiety- hx Vistaril 50 mg PRN PCP filled- patient reported not taking did not help 3. Insomnia sleep hygeine sleep study- negative 2017 4. PTSD discuss therapy and patient agreed - schedule therapy SANDRA discuss and educated on medication Prazosin 1 mg at bedtime- reported nightmares and flashbacks related to a trigger no rx at this time Refer to therapy hx trauma and flashbacks and dreams 6.Cannabis use no control substance prescribed by SANDRA Recommend decrease/stop cannabis use as it can negatively impact mood, motivation, anxiety, sleep, focus/concentrati on/memory (vigilance, elasticity, processing and attention); can also contribute to development of psychosis. http_s://www.nimh .nih.gov/health/t opics/mental-heal th-medications http_s://www.venu .org/About-Mental -Illness/Treatmen ts/Mental-Health- Medications Recommend decrease/stop cannabis use as it may be negatively impacting mood, motivation, anxiety, sleep, focus; can also contribute to development of psychosis Cannabis/marijuan a information: http_s://[place].nih .gov/publications /drugfacts/cannab is-marijuana http_s://www.weipass/cannjanki lls-atq-jiqqqufq- marijuana-adhd/ 7. OCD Prozac 40 mg daily therapy - Sara scheduled 10/08 educated on OCD and medications http_s://www.venu .org/About-Mental -Illness/Mental-H ealth-Conditions http_s://psychcen tral.com/depressi on/the-cognitive- vugjsslc-cu-yprqk ssion#treatments http__s://www.nim .nih.gov/health/ topics/mental-hea [facility]-medications http__s://www.nam i.org/About-Menta l-Illness/Treatme nts/Mental-Health -Medications educated on all medications, benefits, side effects and risk, and educated on depression, anxiety, and ADHD, mood d/o and educated on compliance of medications, metabolic and movement d/o education appointment's, continue therapy discussion with patient about course of treatment and patient instructions. education on serotonin syndrome Discussed and educated pt regarding benzodiazepines are generally not intended for prolonged use and that use can cause tolerance, dependence, depression, and associated memory issues including dementias (this list is not exhaustive). Benzodiazepine use is generally not recommended concurrently with pain medications and/or other controlled substances educated on all medications, benefits, side effects and risk, and educated on depression, anxiety, and ADHD, mood d/o and educated on compliance of medications, metabolic and movement d/o education appointment is, continue therapy discussion with patient about course of treatment and patient instructions. education on serotonin syndrome SSRI/SNRI side effects discussed including but not limited to, gastric upset, nausea, vomiting, diarrhea and/or constipation, weight changes, sexual side effects including loss of libido, increased suicidal thoughts/behavior s in children and young adults, and serotonin syndrome. Second generation antipsychotics (SGAs) have metabolic syndrome issues with weight gain, increase in prolactin, increased waist circumference, increased lipids, and increased glucose. Thus routine monitoring of weight, metabolic labs, etc. is indicated. A general rank ordering of antipsychotics that have the greatest to the least risk of metabolic effects is olanzapine, quetiapine, risperidone, ziprasidone, and aripiprazole. However, weight gain can occur with all of these drugs and considerable variability exists among patients receiving the same drug regarding the risk of metabolic effects. Anti-psychotic agents not only increase the risk of metabolic disorder, they also increase the risk of CVA, akathisia, and movement disorders including EPS or tardive dyskinesia (more common with first generation antipsychotics) and more. Medication Management and Follow-Up - Plan: - Schedule follow-up appointments every 1-3 months to monitor the patient's response to the medication regimen. - Reinforce the importance of avoiding recreational drug use due to potential neurotoxicity and interactions with prescribed medications. 08/25/2024 OAB (overactive bladder) (ICD-10 - N32.81) Urge Incontinence: Care Instructions material was published, Learning About Adult Protective Underwear for Women material was published, Kegel Exercises: Care Instructions material was published 1. DEPRESSION discuss and educated on all rx Seroquel 100 mg at bedtime for depression, anxiety, agitation and mood and also help sleep Increase Prozac 40 mg daily for depression and anxiety 2. Anxiety Prozac 40 mg daily for depression and anxiety- hx Vistaril 50 mg PRN PCP filled- patient reported not taking did not help 3. Insomnia sleep hygeine sleep study- negative 2017 4. PTSD discuss therapy and patient agreed - schedule therapy SANDRA discuss and educated on medication Prazosin 1 mg at bedtime- reported nightmares and flashbacks related to a trigger no rx at this time Refer to therapy hx trauma and flashbacks and dreams 6.Cannabis use no control substance prescribed by SANDRA Recommend decrease/stop cannabis use as it can negatively impact mood, motivation, anxiety, sleep, focus/concentrati on/memory (vigilance, elasticity, processing and attention); can also contribute to development of psychosis. http_s://www.nimh .nih.gov/health/t opics/mental-heal th-medications http_s://www.venu .org/About-Mental -Illness/Treatmen ts/Mental-Health- Medications Recommend decrease/stop cannabis use as it may be negatively impacting mood, motivation, anxiety, sleep, focus; can also contribute to development of psychosis Cannabis/marijuan a information: http_s://[place].nih .gov/publications /drugfacts/cannab is-marijuana http_s://www.weipass/canna lje-jkh-sobxjvbi- marijuana-adhd/ 7. OCD Prozac 40 mg daily therapy - Sara scheduled 10/08 educated on OCD and medications http_s://www.venu .org/About-Mental -Illness/Mental-H ealth-Conditions http_s://psychcen tral.com/depressi on/the-cognitive- bfkjgyrg-yd-uoxvd ssion#treatments http__s://www.[facility].nih.gov/health/ topics/mental-hea [facility]-medications http__s://www.nam i.org/About-Menta l-Illness/Treatme nts/Mental-Health -Medications educated on all medications, benefits, side effects and risk, and educated on depression, anxiety, and ADHD, mood d/o and educated on compliance of medications, metabolic and movement d/o education appointment's, continue therapy discussion with patient about course of treatment and patient instructions. education on serotonin syndrome Discussed and educated pt regarding benzodiazepines are generally not intended for prolonged use and that use can cause tolerance, dependence, depression, and associated memory issues including dementias (this list is not exhaustive). Benzodiazepine use is generally not recommended concurrently with pain medications and/or other controlled substances educated on all medications, benefits, side effects and risk, and educated on depression, anxiety, and ADHD, mood d/o and educated on compliance of medications, metabolic and movement d/o education appointment is, continue therapy discussion with patient about course of treatment and patient instructions. education on serotonin syndrome SSRI/SNRI side effects discussed including but not limited to, gastric upset, nausea, vomiting, diarrhea and/or constipation, weight changes, sexual side effects including loss of libido, increased suicidal thoughts/behavior s in children and young adults, and serotonin syndrome. Second generation antipsychotics (SGAs) have metabolic syndrome issues with weight gain, increase in prolactin, increased waist circumference, increased lipids, and increased glucose. Thus routine monitoring of weight, metabolic labs, etc. is indicated. A general rank ordering of antipsychotics that have the greatest to the least risk of metabolic effects is olanzapine, quetiapine, risperidone, ziprasidone, and aripiprazole. However, weight gain can occur with all of these drugs and considerable variability exists among patients receiving the same drug regarding the risk of metabolic effects. Anti-psychotic agents not only increase the risk of metabolic disorder, they also increase the risk of CVA, akathisia, and movement disorders including EPS or tardive dyskinesia (more common with first generation antipsychotics) and more. Medication Management and Follow-Up - Plan: - Schedule follow-up appointments every 1-3 months to monitor the patient's response to the medication regimen. - Reinforce the importance of avoiding recreational drug use due to potential neurotoxicity and interactions with prescribed medications. 08/04/2024 Chronic post-traumatic stress disorder (PTSD) (ICD-10 - F43.12) Post-Traumatic Stress Disorder (PTSD): Care Instructions material was published 1. DEPRESSION discuss and educated on all rx Increase Seroquel 100 mg at bedtime for depression, anxiety, agitation and mood and also help sleep Prozac 20 mg daily for depression and anxiety PCP filled 2. Anxiety Prozac 20 mg daily for depression and anxiety- PCP filled Vistaril 50 mg PRN PCP filled- patient reported not taking did not help 3. Insomnia sleep hygeine sleep study- negative 2017 4. PTSD discuss therapy and patient agreed - schedule therapy SANDRA discuss and educated on medication Prazosin 1 mg at bedtime- reported nightmares and flashbacks related to a trigger no rx at this time Refer to therapy hx trauma and flashbacks and dreams 6.Cannabis use Recommend decrease/stop cannabis use as it can negatively impact mood, motivation, anxiety, sleep, focus/concentrati on/memory (vigilance, elasticity, processing and attention); can also contribute to development of psychosis. http_s://www.nimh .nih.gov/health/t opics/mental-heal th-medications http_s://www.venu .org/About-Mental -Illness/Treatmen ts/Mental-Health- Medications Recommend decrease/stop cannabis use as it may be negatively impacting mood, motivation, anxiety, sleep, focus; can also contribute to development of psychosis Cannabis/marijuan a information: http_s://[place].nih .gov/publications /drugfacts/cannab is-marijuana http_s://www.weipass/vee qum-iwm-psnmywre- marijuana-adhd/ http_s://www.venu .org/About-Mental -Illness/Mental-H ealth-Conditions http_s://psychcen SNTMNTl.com/depressi on/the-cognitive- sktjqado-nx-dakgp ssion#treatments http__s://www.nim .nih.gov/health/ topics/mental-hea lth-medications http__s://www.nam i.org/About-Menta l-Illness/Treatme nts/Mental-Health -Medications educated on all medications, benefits, side effects and risk, and educated on depression, anxiety, and ADHD, mood d/o and educated on compliance of medications, metabolic and movement d/o education appointment's, continue therapy discussion with patient about course of treatment and patient instructions. education on serotonin syndrome Discussed and educated pt regarding benzodiazepines are generally not intended for prolonged use and that use can cause tolerance, dependence, depression, and associated memory issues including dementias (this list is not exhaustive). Benzodiazepine use is generally not recommended concurrently with pain medications and/or other controlled substances educated on all medications, benefits, side effects and risk, and educated on depression, anxiety, and ADHD, mood d/o and educated on compliance of medications, metabolic and movement d/o education appointment is, continue therapy discussion with patient about course of treatment and patient instructions. education on serotonin syndrome SSRI/SNRI side effects discussed including but not limited to, gastric upset, nausea, vomiting, diarrhea and/or constipation, weight changes, sexual side effects including loss of libido, increased suicidal thoughts/behavior s in children and young adults, and serotonin syndrome. Second generation antipsychotics (SGAs) have metabolic syndrome issues with weight gain, increase in prolactin, increased waist circumference, increased lipids, and increased glucose. Thus routine monitoring of weight, metabolic labs, etc. is indicated. A general rank ordering of antipsychotics that have the greatest to the least risk of metabolic effects is olanzapine, quetiapine, risperidone, ziprasidone, and aripiprazole. However, weight gain can occur with all of these drugs and considerable variability exists among patients receiving the same drug regarding the risk of metabolic effects. Anti-psychotic agents not only increase the risk of metabolic disorder, they also increase the risk of CVA, akathisia, and movement disorders including EPS or tardive dyskinesia (more common with first generation antipsychotics) and more. Medication Management and Follow-Up - Plan: - Schedule follow-up appointments every 1-3 months to monitor the patient's response to the medication regimen. - Reinforce the importance of avoiding recreational drug use due to potential neurotoxicity and interactions with prescribed medications. 06/09/2024 Chronic insomnia (ICD-10 - F51.04) Insomnia: Care Instructions material was published, Learning About Sleeping Well material was published 1. DEPRESSION discuss and educated on all rx Increase Seroquel 50 mg at bedtime for depression, anxiety, agitation and mood Prozac 20 mg daily for depression and anxiety PCP filled 2. Anxiety Prozac 20 mg daily for depression and anxiety- PCP filled Vistaril 50 mg PRN PCP filled- patient reported not romulo did not help 3. Insomnia sleep hygeine sleep study- negative 2017 4. PTSD discuss therapy and patient agreed - schedule therapy SANDRA discuss and educated on medication Prazosin 1 mg at bedtime- Not having nightmares or flashbacks often and if does would be related to a trigger no rx at this time refer to therapy 5.Cannabis use Recommend decrease/stop cannabis use as it can negatively impact mood, motivation, anxiety, sleep, focus/concentrati on/memory (vigilance, elasticity, processing and attention); can also contribute to development of psychosis. http_s://www.nim .nih.gov/health/t opics/mental-heal th-medications http_s://www.venu .org/About-Mental -Illness/Treatmen ts/Mental-Health- Medications Recommend decrease/stop cannabis use as it may be negatively impacting mood, motivation, anxiety, sleep, focus; can also contribute to development of psychosis Cannabis/marijuan a information: http_s://[place].nih .gov/publications /drugfacts/cannab is-marijuana http_s://www.weipass/canna dhh-jcj-nrnjzuwq- marijuana-adhd/ http_s://www.venu .org/About-Mental -Illness/Mental-H ealth-Conditions http_s://psychPostachio/depressi on/the-cognitive- rtnjtcgk-sz-jgkyp ssion#treatments http__s://www.[facility].nih.gov/health/ topics/mental-hea lth-medications http__s://www.nam i.org/About-Menta l-Illness/Treatme nts/Mental-Health -Medications educated on all medications, benefits, side effects and risk, and educated on depression, anxiety, and ADHD, mood d/o and educated on compliance of medications, metabolic and movement d/o education appointment's, continue therapy discussion with patient about course of treatment and patient instructions. education on serotonin syndrome Discussed and educated pt regarding benzodiazepines are generally not intended for prolonged use and that use can cause tolerance, dependence, depression, and associated memory issues including dementias (this list is not exhaustive). Benzodiazepine use is generally not recommended concurrently with pain medications and/or other controlled substances educated on all medications, benefits, side effects and risk, and educated on depression, anxiety, and ADHD, mood d/o and educated on compliance of medications, metabolic and movement d/o education appointment is, continue therapy discussion with patient about course of treatment and patient instructions. education on serotonin syndrome SSRI/SNRI side effects discussed including but not limited to, gastric upset, nausea, vomiting, diarrhea and/or constipation, weight changes, sexual side effects including loss of libido, increased suicidal thoughts/behavior s in children and young adults, and serotonin syndrome. Second generation antipsychotics (SGAs) have metabolic syndrome issues with weight gain, increase in prolactin, increased waist circumference, increased lipids, and increased glucose. Thus routine monitoring of weight, metabolic labs, etc. is indicated. A general rank ordering of antipsychotics that have the greatest to the least risk of metabolic effects is olanzapine, quetiapine, risperidone, ziprasidone, and aripiprazole. However, weight gain can occur with all of these drugs and considerable variability exists among patients receiving the same drug regarding the risk of metabolic effects. Anti-psychotic agents not only increase the risk of metabolic disorder, they also increase the risk of CVA, akathisia, and movement disorders including EPS or tardive dyskinesia (more common with first generation antipsychotics) and more. Medication Management and Follow-Up - Plan: - Schedule follow-up appointments every 1-3 months to monitor the patient's response to the medication regimen. - Reinforce the importance of avoiding recreational drug use due to potential neurotoxicity and interactions with prescribed medications. 08/04/2024 OAB (overactive bladder) (ICD-10 - N32.81) Urge Incontinence: Care Instructions material was published, Learning About Adult Protective Underwear for Women material was published, Kegel Exercises: Care Instructions material was published 1. DEPRESSION discuss and educated on all rx Increase Seroquel 100 mg at bedtime for depression, anxiety, agitation and mood and also help sleep Prozac 20 mg daily for depression and anxiety PCP filled 2. Anxiety Prozac 20 mg daily for depression and anxiety- PCP filled Vistaril 50 mg PRN PCP filled- patient reported not taking did not help 3. Insomnia sleep hygeine sleep study- negative 2017 4. PTSD discuss therapy and patient agreed - schedule therapy SANDRA discuss and educated on medication Prazosin 1 mg at bedtime- reported nightmares and flashbacks related to a trigger no rx at this time Refer to therapy hx trauma and flashbacks and dreams 6.Cannabis use Recommend decrease/stop cannabis use as it can negatively impact mood, motivation, anxiety, sleep, focus/concentrati on/memory (vigilance, elasticity, processing and attention); can also contribute to development of psychosis. http_s://www.nim .nih.gov/health/t opics/mental-heal th-medications http_s://www.venu .org/About-Mental -Illness/Treatmen ts/Mental-Health- Medications Recommend decrease/stop cannabis use as it may be negatively impacting mood, motivation, anxiety, sleep, focus; can also contribute to development of psychosis Cannabis/marijuan a information: http_s://[place].nih .gov/publications /drugfacts/cannab is-marijuana http_s://www.weipass/canna efv-kmk-aycdwcom- marijuana-adhd/ http_s://www.venu .org/About-Mental -Illness/Mental-H ealth-Conditions http_s://psychPostachio/depressi on/the-cognitive- bpubjasb-ay-jrxpa ssion#treatments http__s://www.[facility].nih.gov/health/ topics/mental-hea lth-medications http__s://www.nam i.org/About-Menta l-Illness/Treatme nts/Mental-Health -Medications educated on all medications, benefits, side effects and risk, and educated on depression, anxiety, and ADHD, mood d/o and educated on compliance of medications, metabolic and movement d/o education appointment's, continue therapy discussion with patient about course of treatment and patient instructions. education on serotonin syndrome Discussed and educated pt regarding benzodiazepines are generally not intended for prolonged use and that use can cause tolerance, dependence, depression, and associated memory issues including dementias (this list is not exhaustive). Benzodiazepine use is generally not recommended concurrently with pain medications and/or other controlled substances educated on all medications, benefits, side effects and risk, and educated on depression, anxiety, and ADHD, mood d/o and educated on compliance of medications, metabolic and movement d/o education appointment is, continue therapy discussion with patient about course of treatment and patient instructions. education on serotonin syndrome SSRI/SNRI side effects discussed including but not limited to, gastric upset, nausea, vomiting, diarrhea and/or constipation, weight changes, sexual side effects including loss of libido, increased suicidal thoughts/behavior s in children and young adults, and serotonin syndrome. Second generation antipsychotics (SGAs) have metabolic syndrome issues with weight gain, increase in prolactin, increased waist circumference, increased lipids, and increased glucose. Thus routine monitoring of weight, metabolic labs, etc. is indicated. A general rank ordering of antipsychotics that have the greatest to the least risk of metabolic effects is olanzapine, quetiapine, risperidone, ziprasidone, and aripiprazole. However, weight gain can occur with all of these drugs and considerable variability exists among patients receiving the same drug regarding the risk of metabolic effects. Anti-psychotic agents not only increase the risk of metabolic disorder, they also increase the risk of CVA, akathisia, and movement disorders including EPS or tardive dyskinesia (more common with first generation antipsychotics) and more. Medication Management and Follow-Up - Plan: - Schedule follow-up appointments every 1-3 months to monitor the patient's response to the medication regimen. - Reinforce the importance of avoiding recreational drug use due to potential neurotoxicity and interactions with prescribed medications. 08/25/2024 Chronic insomnia (ICD-10 - F51.04) Insomnia: Care Instructions material was published, Learning About Sleeping Well material was published 1. DEPRESSION discuss and educated on all rx Seroquel 100 mg at bedtime for depression, anxiety, agitation and mood and also help sleep Increase Prozac 40 mg daily for depression and anxiety 2. Anxiety Prozac 40 mg daily for depression and anxiety- hx Vistaril 50 mg PRN PCP filled- patient reported not taking did not help 3. Insomnia sleep hygeine sleep study- negative 2017 4. PTSD discuss therapy and patient agreed - schedule therapy SANDRA discuss and educated on medication Prazosin 1 mg at bedtime- reported nightmares and flashbacks related to a trigger no rx at this time Refer to therapy hx trauma and flashbacks and dreams 6.Cannabis use no control substance prescribed by SANDRA Recommend decrease/stop cannabis use as it can negatively impact mood, motivation, anxiety, sleep, focus/concentrati on/memory (vigilance, elasticity, processing and attention); can also contribute to development of psychosis. http_s://www.nim .nih.gov/health/t opics/mental-heal th-medications http_s://www.venu .org/About-Mental -Illness/Treatmen ts/Mental-Health- Medications Recommend decrease/stop cannabis use as it may be negatively impacting mood, motivation, anxiety, sleep, focus; can also contribute to development of psychosis Cannabis/marijuan a information: http_s://[place].nih .gov/publications /drugfacts/cannab is-marijuana http_s://www.weipass/canna iff-wsa-esfovttq- marijuana-adhd/ 7. OCD Prozac 40 mg daily therapy - Sara scheduled 10/08 educated on OCD and medications http_s://www.venu .org/About-Mental -Illness/Mental-H ealth-Conditions http_s://psychcen Audience/depressi on/the-cognitive- kevktzrp-fg-mvyqy ssion#treatments http__s://www.nim .nih.gov/health/ topics/mental-hea lth-medications http__s://www.nam i.org/About-Menta l-Illness/Treatme nts/Mental-Health -Medications educated on all medications, benefits, side effects and risk, and educated on depression, anxiety, and ADHD, mood d/o and educated on compliance of medications, metabolic and movement d/o education appointment's, continue therapy discussion with patient about course of treatment and patient instructions. education on serotonin syndrome Discussed and educated pt regarding benzodiazepines are generally not intended for prolonged use and that use can cause tolerance, dependence, depression, and associated memory issues including dementias (this list is not exhaustive). Benzodiazepine use is generally not recommended concurrently with pain medications and/or other controlled substances educated on all medications, benefits, side effects and risk, and educated on depression, anxiety, and ADHD, mood d/o and educated on compliance of medications, metabolic and movement d/o education appointment is, continue therapy discussion with patient about course of treatment and patient instructions. education on serotonin syndrome SSRI/SNRI side effects discussed including but not limited to, gastric upset, nausea, vomiting, diarrhea and/or constipation, weight changes, sexual side effects including loss of libido, increased suicidal thoughts/behavior s in children and young adults, and serotonin syndrome. Second generation antipsychotics (SGAs) have metabolic syndrome issues with weight gain, increase in prolactin, increased waist circumference, increased lipids, and increased glucose. Thus routine monitoring of weight, metabolic labs, etc. is indicated. A general rank ordering of antipsychotics that have the greatest to the least risk of metabolic effects is olanzapine, quetiapine, risperidone, ziprasidone, and aripiprazole. However, weight gain can occur with all of these drugs and considerable variability exists among patients receiving the same drug regarding the risk of metabolic effects. Anti-psychotic agents not only increase the risk of metabolic disorder, they also increase the risk of CVA, akathisia, and movement disorders including EPS or tardive dyskinesia (more common with first generation antipsychotics) and more. Medication Management and Follow-Up - Plan: - Schedule follow-up appointments every 1-3 months to monitor the patient's response to the medication regimen. - Reinforce the importance of avoiding recreational drug use due to potential neurotoxicity and interactions with prescribed medications. 08/25/2024 Mixed obsessional thoughts and acts (ICD-10 - F42.2) 1. DEPRESSION discuss and educated on all rx Seroquel 100 mg at bedtime for depression, anxiety, agitation and mood and also help sleep Increase Prozac 40 mg daily for depression and anxiety 2. Anxiety Prozac 40 mg daily for depression and anxiety- hx Vistaril 50 mg PRN PCP filled- patient reported not taking did not help 3. [facility] 4. PTSD discuss therapy and patient agreed - schedule therapy SANDRA discuss and educated on medication Prazosin 1 mg at bedtime- reported nightmares and flashbacks related to a trigger no rx at this time Refer to therapy hx trauma and flashbacks and dreams 6.Cannabis use no control substance prescribed by SANDRA Recommend decrease/stop cannabis use as it can negatively impact mood, motivation, anxiety, sleep, focus/concentrati on/memory (vigilance, elasticity, processing and attention); can also contribute to development of psychosis. http_s://www.nimh .nih.gov/health/t opics/mental-heal th-medications http_s://www.venu .org/About-Mental -Illness/Treatmen ts/Mental-Health- Medications Recommend decrease/stop cannabis use as it may be negatively impacting mood, motivation, anxiety, sleep, focus; can also contribute to development of psychosis Cannabis/marijuan a information: http_s://[place].nih .gov/publications /drugfacts/cannab is-marijuana http_s://www.weipass/canna iwb-las-hsehlgxb- marijuana-adhd/ 7. OCD Prozac 40 mg daily therapy - Sara scheduled 10/08 educated on OCD and medications http_s://www.venu .org/About-Mental -Illness/Mental-H ealth-Conditions http_s://psychcen Audience/depressi on/the-cognitive- rgccgxkf-yn-mnemp ssion#treatments http__s://www.[facility].nih.gov/health/ topics/mental-hea lth-medications http__s://www.nam i.org/About-Menta l-Illness/Treatme nts/Mental-Health -Medications educated on all medications, benefits, side effects and risk, and educated on depression, anxiety, and ADHD, mood d/o and educated on compliance of medications, metabolic and movement d/o education appointment's, continue therapy discussion with patient about course of treatment and patient instructions. education on serotonin syndrome Discussed and educated pt regarding benzodiazepines are generally not intended for prolonged use and that use can cause tolerance, dependence, depression, and associated memory issues including dementias (this list is not exhaustive). Benzodiazepine use is generally not recommended concurrently with pain medications and/or other controlled substances educated on all medications, benefits, side effects and risk, and educated on depression, anxiety, and ADHD, mood d/o and educated on compliance of medications, metabolic and movement d/o education appointment is, continue therapy discussion with patient about course of treatment and patient instructions. education on serotonin syndrome SSRI/SNRI side effects discussed including but not limited to, gastric upset, nausea, vomiting, diarrhea and/or constipation, weight changes, sexual side effects including loss of libido, increased suicidal thoughts/behavior s in children and young adults, and serotonin syndrome. Second generation antipsychotics (SGAs) have metabolic syndrome issues with weight gain, increase in prolactin, increased waist circumference, increased lipids, and increased glucose. Thus routine monitoring of weight, metabolic labs, etc. is indicated. A general rank ordering of antipsychotics that have the greatest to the least risk of metabolic effects is olanzapine, quetiapine, risperidone, ziprasidone, and aripiprazole. However, weight gain can occur with all of these drugs and considerable variability exists among patients receiving the same drug regarding the risk of metabolic effects. Anti-psychotic agents not only increase the risk of metabolic disorder, they also increase the risk of CVA, akathisia, and movement disorders including EPS or tardive dyskinesia (more common with first generation antipsychotics) and more. Medication Management and Follow-Up - Plan: - Schedule follow-up appointments every 1-3 months to monitor the patient's response to the medication regimen. - Reinforce the importance of avoiding recreational drug use due to potential neurotoxicity and interactions with prescribed medications. 08/04/2024 Chronic insomnia (ICD-10 - F51.04) Insomnia: Care Instructions material was published, Learning About Sleeping Well material was published 1. DEPRESSION discuss and educated on all rx Increase Seroquel 100 mg at bedtime for depression, anxiety, agitation and mood and also help sleep Prozac 20 mg daily for depression and anxiety PCP filled 2. Anxiety Prozac 20 mg daily for depression and anxiety- PCP filled Vistaril 50 mg PRN PCP filled- patient reported not taking did not help 3. Insomnia sleep hygeine sleep study- negative 2017 4. PTSD discuss therapy and patient agreed - schedule therapy SANDRA discuss and educated on medication Prazosin 1 mg at bedtime- reported nightmares and flashbacks related to a trigger no rx at this time Refer to therapy hx trauma and flashbacks and dreams 6.Cannabis use Recommend decrease/stop cannabis use as it can negatively impact mood, motivation, anxiety, sleep, focus/concentrati on/memory (vigilance, elasticity, processing and attention); can also contribute to development of psychosis. http_s://www.nimh .nih.gov/health/t opics/mental-heal th-medications http_s://www.venu .org/About-Mental -Illness/Treatmen ts/Mental-Health- Medications Recommend decrease/stop cannabis use as it may be negatively impacting mood, motivation, anxiety, sleep, focus; can also contribute to development of psychosis Cannabis/marijuan a information: http_s://[place].nih .gov/publications /drugfacts/cannab is-marijuana http_s://www.weipass/canna vhm-dvk-ngkndofj- marijuana-adhd/ http_s://www.venu .org/About-Mental -Illness/Mental-H ealth-Conditions http_s://Bday/depressi on/the-cognitive- eeafuyop-hp-uoilb ssion#treatments http__s://www.[facility].nih.gov/health/ topics/mental-hea lt-medications http__s://www.nam i.org/About-Menta l-Illness/Treatme nts/Mental-Health -Medications educated on all medications, benefits, side effects and risk, and educated on depression, anxiety, and ADHD, mood d/o and educated on compliance of medications, metabolic and movement d/o education appointment's, continue therapy discussion with patient about course of treatment and patient instructions. education on serotonin syndrome Discussed and educated pt regarding benzodiazepines are generally not intended for prolonged use and that use can cause tolerance, dependence, depression, and associated memory issues including dementias (this list is not exhaustive). Benzodiazepine use is generally not recommended concurrently with pain medications and/or other controlled substances educated on all medications, benefits, side effects and risk, and educated on depression, anxiety, and ADHD, mood d/o and educated on compliance of medications, metabolic and movement d/o education appointment is, continue therapy discussion with patient about course of treatment and patient instructions. education on serotonin syndrome SSRI/SNRI side effects discussed including but not limited to, gastric upset, nausea, vomiting, diarrhea and/or constipation, weight changes, sexual side effects including loss of libido, increased suicidal thoughts/behavior s in children and young adults, and serotonin syndrome. Second generation antipsychotics (SGAs) have metabolic syndrome issues with weight gain, increase in prolactin, increased waist circumference, increased lipids, and increased glucose. Thus routine monitoring of weight, metabolic labs, etc. is indicated. A general rank ordering of antipsychotics that have the greatest to the least risk of metabolic effects is olanzapine, quetiapine, risperidone, ziprasidone, and aripiprazole. However, weight gain can occur with all of these drugs and considerable variability exists among patients receiving the same drug regarding the risk of metabolic effects. Anti-psychotic agents not only increase the risk of metabolic disorder, they also increase the risk of CVA, akathisia, and movement disorders including EPS or tardive dyskinesia (more common with first generation antipsychotics) and more. Medication Management and Follow-Up - Plan: - Schedule follow-up appointments every 1-3 months to monitor the patient's response to the medication regimen. - Reinforce the importance of avoiding recreational drug use due to potential neurotoxicity and interactions with prescribed medications. 05/26/2024 Other Quetiapine material was published 1. DEPRESSION discuss and educated on adding Seroquel 25 mg at bedtime for depression, anxiety, agitation and mood Prozac 20 mg daily for depression and anxiety PCP filled 2. Anxiety Prozac 20 mg daily for depression and anxiety- PCP filled Vistaril 50 mg PRN PCP filled 3. Insomnia sleep hygeine sleep study- negative 2017 4. PTSD discuss therapy and patient will consider discuss and educated on Prazosin 1 mg at bedtime monitor B/P 5.Cannabis use Recommend decrease/stop cannabis use as it can negatively impact mood, motivation, anxiety, sleep, focus/concentrati on/memory (vigilance, elasticity, processing and attention); can also contribute to development of psychosis. http_s://www.nimh .nih.gov/health/t opics/mental-heal th-medications http_s://www.venu .org/About-Mental -Illness/Treatmen ts/Mental-Health- Medications Recommend decrease/stop cannabis use as it may be negatively impacting mood, motivation, anxiety, sleep, focus; can also contribute to development of psychosis Cannabis/marijuan a information: http_s://[place].nih .gov/publications /drugfacts/cannab is-marijuana http_s://www.weipass/canna oej-tta-osndbgtu- marijuana-adhd/ http_s://www.venu .org/About-Mental -Illness/Mental-H ealth-Conditions http_s://psychcen tral.com/depressi on/the-cognitive- mmfmjmof-hv-cvtwa ssion#treatments http__s://www.nim .nih.gov/health/ topics/mental-hea lth-medications http__s://www.nam i.org/About-Menta l-Illness/Treatme nts/Mental-Health -Medications educated on all medications, benefits, side effects and risk, and educated on depression, anxiety, and ADHD, mood d/o and educated on compliance of medications, metabolic and movement d/o education appointment's, continue therapy discussion with patient about course of treatment and patient instructions. education on serotonin syndrome Discussed and educated pt regarding benzodiazepines are generally not intended for prolonged use and that use can cause tolerance, dependence, depression, and associated memory issues including dementias (this list is not exhaustive). Benzodiazepine use is generally not recommended concurrently with pain medications and/or other controlled substances educated on all medications, benefits, side effects and risk, and educated on depression, anxiety, and ADHD, mood d/o and educated on compliance of medications, metabolic and movement d/o education appointment is, continue therapy discussion with patient about course of treatment and patient instructions. education on serotonin syndrome SSRI/SNRI side effects discussed including but not limited to, gastric upset, nausea, vomiting, diarrhea and/or constipation, weight changes, sexual side effects including loss of libido, increased suicidal thoughts/behavior s in children and young adults, and serotonin syndrome. Second generation antipsychotics (SGAs) have metabolic syndrome issues with weight gain, increase in prolactin, increased waist circumference, increased lipids, and increased glucose. Thus routine monitoring of weight, metabolic labs, etc. is indicated. A general rank ordering of antipsychotics that have the greatest to the least risk of metabolic effects is olanzapine, quetiapine, risperidone, ziprasidone, and aripiprazole. However, weight gain can occur with all of these drugs and considerable variability exists among patients receiving the same drug regarding the risk of metabolic effects. Anti-psychotic agents not only increase the risk of metabolic disorder, they also increase the risk of CVA, akathisia, and movement disorders including EPS or tardive dyskinesia (more common with first generation antipsychotics) and more. Elderly- discussed risks, cognition, sedation, falls, metabolic, movement and atypical antipsychotics carry a black-box warning for increased risk of and cerebrovascular events in dementia. Medication Management and Follow-Up - Plan: - Schedule follow-up appointments every 1-3 months to monitor the patient's response to the medication regimen. - Reinforce the importance of avoiding recreational drug use due to potential neurotoxicity and interactions with prescribed medications. Plan Of Treatment No Information Insurance Providers Payer Name Payer Address Payer Phone Subscriber Number Group Number Insured Name Patient Relationship to Insured Coverage Start Date Coverage End Date [facility] [address] [place] [address] [id number] Arabella Lopez Self - patient is the insured Medical (General) History Medical History History ICD Code Past Psychiatric History: Anxiety Disord er,PTSD,Major Depressive Episode Surgical History Surgery Date(Month/Year) Bu lateral Carpel tunnel 2003? hysterectomy 2007 knee(arthroscopic) 1994 gall bladder 2012 elbow surgery (both) 2003/2004? Hospitalization History Reason Date(Month/Year) [facility]? Manic and De pression 2009 2 weeks in [facility], juliana, and de pression 1991
--- OUTSIDE RECORDS SUMMARY | 2024-12-03 09:11 | XMS_ITS | Encounter Summary ---
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
--- NOTE | 2024-12-03 09:40 | NEURO_ITS ---
Impression: # Diabetic with history of surgeries in the past complains of hand pain and numbness. ? # Bilateral Ulnar Neuropathy across the elbow, right more than left ? # No Capral Tunnel Syndrome ? # Needle/ EMG exam abnormal Nerve Conduction Studies ?Stim Site NR Peak (ms) P-T Amp (?V) Site1 Site2 Delta-P (ms) Dist (cm) Skyler (m/s) Left Median Anti Sensory (2-3nd Digit) Wrist ? 3.0 37.3 Wrist 2-3nd Digit 3.0 14.0 47 Wrist ? 3.0 33.4 Wrist 2-3nd Digit 3.0 14.0 47 Right Median Anti Sensory (2-3nd Digit) Wrist ? 3.2 21.3 Wrist 2-3nd Digit 3.2 14.0 44 Wrist ? 3.3 25.7 Wrist 2-3nd Digit 3.2 14.0 44 Left Radial Anti Sensory (Base 1st Digit) Wrist ? 2.0 9.8 Wrist Base 1st Digit 2.0 0.0 Right Radial Anti Sensory (Base 1st Digit) Wrist ? 2.0 11.3 Wrist Base 1st Digit 2.0 0.0 Left Ulnar Anti Sensory (5th Digit) Wrist ? 2.5 20.4 Wrist 5th Digit 2.5 14.0 56 Right Ulnar Anti Sensory (5th Digit) Wrist ? 2.3 22.2 Wrist 5th Digit 2.3 14.0 61 ?Stim Site NR Onset (ms) O-P Amp (mV) Site1 Site2 Delta-0 (ms) Dist (cm) Skyler (m/s) Left Median Motor (Abd Poll Brev) Wrist ? 3.0 4.5 Elbow Wrist 4.7 30.0 64 Elbow ? 7.7 4.2 Right Median Motor (Abd Poll Brev) Wrist ? 3.5 4.4 Elbow Wrist 4.6 29.0 63 Elbow ? 8.1 3.9 Left Ulnar Motor (Abd Dig Minimi) Wrist ? 2.6 6.1 A Elbow Wrist 5.5 30.0 55 A Elbow ? 8.1 4.8 B Elbow Wrist 3.4 22.0 65 B Elbow ? 6.0 3.3 Right Ulnar Motor (Abd Dig Minimi) Wrist ? 2.1 5.3 A Elbow Wrist 5.8 29.0 50 A Elbow ? 7.9 4.2 B Elbow Wrist 3.8 21.0 55 B Elbow ? 5.9 4.0 F Wave Studies ?NR F-Lat (ms) L-R F-Lat (ms) Left Median (Mrkrs) (Abd Poll Brev) ? 26.36 1.15 Right Median (Mrkrs) (Abd Poll Brev) ? 27.51 1.15 Left Ulnar (Mrkrs) (Abd Dig Min) ? 28.95 1.26 Right Ulnar (Mrkrs) (Abd Dig Min) ? 27.68 1.26 Electromyography ?Side Muscle Nerve Root Ins Act Fibs Amp Dur Recrt Comment Right 1stDorInt Ulnar C8-T1 Nml Nml Nml >12ms +1 Right Ext Indicis Radial (Post Int) C7-8 Nml Nml Nml Nml Nml Right Ext Digitorum Radial (Post Int) C7-8 Nml Nml Nml Nml Nml Right BrachioRad Radial C5-6 Nml Nml Nml Nml Nml Right PronatorTeres Median C6-7 Nml Nml Nml Nml Nml Right Abd Poll Brev Median C8-T1 Nml Nml Nml Nml Nml Right ABD Dig Min Ulnar C8-T1 Nml Nml Nml >12ms +1 Right FlexPolLong Median (Ant Int) C7-8 Nml Nml Nml Nml Nml Right Abd Poll Long Radial (Post Int) C7-8 Nml Nml Nml Nml Nml Left 1stDorInt Ulnar C8-T1 Nml Nml Nml >12ms +1 Left Ext Indicis Radial (Post Int) C7-8 Nml Nml Nml Nml Nml Left Ext Digitorum Radial (Post Int) C7-8 Nml Nml Nml Nml Nml Left BrachioRad Radial C5-6 Nml Nml Nml Nml Nml Left PronatorTeres Median C6-7 Nml Nml Nml Nml Nml Left Abd Poll Brev Median C8-T1 Nml Nml Nml Nml Nml Left ABD Dig Min Ulnar C8-T1 Nml Nml Nml >12ms +1 Left FlexPolLong Median (Ant Int) C7-8 Nml Nml Nml Nml Nml Left Abd Poll Long Radial (Post Int) C7-8 Nml Nml Nml Nml Nml Left Deltoid Axillary C5-6 Nml Nml Nml Nml Nml
== END 2024-12-03 09:04 | disposition home or self-care (01) ==
PROVIDERS: PCP Nurse Practitioner Adult Health; Visit Provider Plastic Surgery
DX: G56.23 Lesion of ulnar nerve, bilateral upper limbs (principal)
CPT/HCPCS: 95886; 95911

== ENCOUNTER 2024-12-22 10:51 | Outpatient (CLI) | payer BC, SELFPAY ==
--- NOTE | ~2024-12-22 | XR_ITS ---
EXAM/ PROCEDURE: XR hand LT min 3V - 12/22/2024 10:54 CDT HISTORY: 54 years old Female with S69.92XA - Unspecified injury of left wrist, hand and fin... COMPARISON: None available TECHNIQUE: Three view(s) FINDINGS/ IMPRESSION: There are no fractures or dislocations.Joint space narrowing, subchondral sclerosis, subchondral cyst formation and osteophyte formation, compatible with mild osteoarthritis. Reviewed, dictated and finalized at location N.
--- NOTE | ~2024-12-22 | XR_ITS ---
EXAM/ PROCEDURE: XR wrist LT min 3V - 12/22/2024 10:54 CDT HISTORY: 54 years old Female with S69.92XA - Unspecified injury of left wrist, hand and fin... COMPARISON: None available TECHNIQUE: Three view(s) FINDINGS/ IMPRESSION: There are no fractures or dislocations.Joint space narrowing, subchondral sclerosis, subchondral cyst formation and osteophyte formation, compatible with mild osteoarthritis. Reviewed, dictated and finalized at location N.
--- OUTSIDE RECORDS SUMMARY | 2024-12-22 11:20 | XMS_ITS | Clinical Summary ---
Author Organization [facility] Address [address] [place] [address] Care Team Providers Care Health Plan Manager Name Role Phone Yovani Potter MD Primary Care Provider [phone] Allergies Active Allergy Reactions Criticality Noted Date [...] on file Legal Sex Female 4:18 PM [employer] Gender Identity Not on file Sexual Orientation [...] 09/04/2021 Influenza Vaccine (#1) 2024 02/07/2017 Insurance [employer] GENERIC Member Subscriber Plan / Payer (Ef fective 2022-Present) Name:Arabella Espinal Relation to Subscriber:Employee Name:[employer] (Home) Address: [place] [address] Payer ID:[id number] Group ID:Not on file Type:WORKERS COMPENSATION Address: [place] [phone] Care Teams Health Plan Manager Relationship Specialty Start Date End Date [place] [id number] PCP - General Family Medicine 07/09/19
== END 2024-12-22 10:52 | disposition home or self-care (01) ==
LOC: ANHBWCIMG 10:52
PROVIDERS: PCP Nurse Practitioner Adult Health; Visit Provider Nurse Practitioner Adult Health
DX: S69.92XA Unspecified injury of left wrist, hand and finger(s), initial encounter (principal); X58.XXXA Exposure to other specified factors, initial encounter
CPT/HCPCS: 73110; 73130